=== PATIENT | male | born 1965 | race Native Hawaiian/Other Pacific Islander ===

== ENCOUNTER → 2016-12-15 | Outpatient (CLI) | payer OTHER ==
--- NOTE | 2016-12-15 15:18 | XR ---
EXAMINATION TYPE: XR sacroiliac joint comp BILAT DATE OF EXAM: 12/15/2016 3:15 PM COMPARISON: NONE HISTORY: Low back pain TECHNIQUE: 2 views sacroiliac joints FINDINGS: No acute fractures are evident. Sacroiliac joints are patent. IMPRESSION: 1. Normal sacroiliac joints
--- NOTE | 2016-12-15 15:19 | XR ---
EXAMINATION TYPE: XR lumbar spine with bend/flex DATE OF EXAM: 12/15/2016 3:14 PM COMPARISON: NONE HISTORY: Low back pain TECHNIQUE: 5 view lumbar spine FINDINGS: T12 ribs are rudimentary. Disc heights are preserved. Vertebral body heights are preserved. Flexion and extension views maintained alignment of the lumbar spine. IMPRESSION: 1. Normal lumbar spine with lateral flexion and extension views
== END ==
LOC: RADXRMAIN 14:44
PROVIDERS: ATTEND Psychiatry & Neurology Pain Medicine
DX: M54.5 Low back pain (principal)
CPT/HCPCS: 72114; 72202

== ENCOUNTER → 2016-12-30 | Outpatient (CLI) | payer OTHER | LOC: RADMRIMAIN 07:07 | PROVIDERS: ATTEND Psychiatry & Neurology Pain Medicine | DX: Z53.9 Procedure and treatment not carried out, unspecified reason (principal) ==

== ENCOUNTER 2017-09-08 21:33 | Emergency (ER) | payer OTHER ==
[2017-09-08] MEDS ORDERED: SODIUM CHLORIDE 0.9% 1,000 ML IV STA (22:16)
[2017-09-08] MEDS ORDERED: HYDROcodone/APAP 5-325MG 1 EACH TAB PO STA (22:17)
[2017-09-08] MEDS ORDERED: ACETAMINOPHEN TAB 500 MG TAB PO STA (22:17)
[2017-09-08] MEDS ORDERED: IBUPROFEN 600 MG TAB PO STA (22:17)
[2017-09-08 22:37] VITALS: RESP 18
[2017-09-08 22:47] LABS: Appearance,Urine Clear (Clear); Bilirubin,Urine Negative (Negative); Blood,Urine Negative (Negative); Color,Urine Yellow; Glucose,Urine (UA) Negative (Negative); Ketones,Urine Negative (Negative); Leukocyte Esterase,Urine Negative (Negative); Nitrite,Urine Negative (Negative); PH, Urine 7.5 (5.0-8.0); Protein,Urine Trace (Negative); Specific Gravity,Urine 1.019 (1.001-1.035); Urobilinogen,Urine <2.0 mg/dL (<2.0)
[2017-09-08 22:49] LABS: Basophils % (A) 0 %; Eosinophils # (A) 0.1 k/uL (0-0.7); Eosinophils % (A) 1 %; HCT 45.3 % (39.0-53.0); HGB 14.2 gm/dL (13.0-17.5); Lymphocytes # (A) 1.4 k/uL (1.0-4.8); Lymphocytes % (A) 27 %; MCH 25.7 pg (25.0-35.0); MCHC 31.3 g/dL (31.0-37.0); MCV 81.9 fL (80.0-100.0); Mean Platelet Volume 7.6; Monocytes # (A) 0.5 k/uL (0-1.0); Monocytes % (A) 9 %; Neutrophils # (A) 3.3 k/uL (1.3-7.7); Neutrophils % (A) 61 %; Platelet Count 209 k/uL (150-450); RBC 5.53 m/uL (4.30-5.90); RDW 14.4 % (11.5-15.5); WBC 5.4 k/uL (3.8-10.6)
[2017-09-08 22:50] LABS: ALT 36 U/L (21-72); AST 30 U/L (17-59); Alkaline Phosphatase 99 U/L (38-126); Amylase 77 U/L (30-110); Anion Gap 11 mmol/L; Blood Urea Nitrogen 11 mg/dL (9-20); Calcium 9.2 mg/dL (8.4-10.2); Carbon Dioxide 23 mmol/L (22-30); Chloride 105 mmol/L (98-107); Glucose 136 mg/dL (74-99); Lipase 94 U/L (23-300); Potassium 4.3 mmol/L (3.5-5.1); Sodium 139 mmol/L (137-145); Total Bilirubin 0.2 mg/dL (0.2-1.3); Total Protein 7.4 g/dL (6.3-8.2)
--- NOTE | 2017-09-08 22:55 | ED ---
Abdominal Pain HPI - General Chief Complaint: Abdominal Pain Stated Complaint: Leg pain Time Seen by Provider: 09/08/17 22:01 Source: patient, RN notes reviewed, old records reviewed Mode of arrival: wheelchair Limitations: no limitations - History of Present Illness Initial Comments: this patient is a 52-year-old male presents emergency room multiple complaints. Patient has body aches, fever, chills for the past 3 days. He reports that he has some upper abdominal pain, feels a burning sensation also complains of bilateral knee pain. Patient states that his joints ache. He states that he has had Motrin sure ago. He also reports she's had a somewhat of a cough. Denies any specific chest pain at this time.patient also reports that he isn't having diarrhea.Patient denies any recent chest pain, back pain, abdominal pain , numbness or tingling, dysuria or hematuria, constipation or, headaches or visual changes, or any other current symptoms - Related Data Previous Rx's Medication Instructions Recorded Ibuprofen [Motrin] 800 mg PO Q8HR PRN #20 tab 09/13/15 HYDROcodone/APAP 5-325MG [[place] 1 tab PO Q6HR PRN #15 tab 09/09/17 5-325] Ibuprofen [Motrin] 600 mg PO Q8HR PRN #20 tab 09/09/17 valACYclovir HCL [Valacyclovir] 1,000 mg PO Q12HR #14 tab 09/09/17 Allergies Allergy/AdvReac Type Severity Reaction Status Date / Time No Known Allergies Allergy Verified 09/08/17 21:55 Review of Systems ROS Statement: Those systems with pertinent positive or pertinent negative responses have been documented in the HPI. ROS Other: All systems not noted in ROS Statement are negative. Past Medical History Past Medical History: Asthma, Diabetes Mellitus, Hypertension History of Any Multi-Drug Resistant Organisms: None Reported Past Surgical History: Orthopedic Surgery Additional Past Surgical History / Comment(s): nimco knee Past Psychological History: No Psychological Hx Reported Smoking Status: Never smoker Past Alcohol Use History: Occasional Past Drug Use History: None Reported General Exam - General Exam Comments Initial Comments: this is a 52-year-old male. No acute distress. Limitations: no limitations General appearance: alert, in no apparent distress Head exam: Present: atraumatic Eye exam: Present: normal appearance, PERRL, EOMI. Absent: scleral icterus, conjunctival injection, periorbital swelling ENT exam: Present: normal exam, mucous membranes moist Neck exam: Present: normal inspection. Absent: tenderness, meningismus, lymphadenopathy Respiratory exam: Present: normal lung sounds bilaterally. Absent: respiratory distress, wheezes, rales, rhonchi, stridor Cardiovascular Exam: Present: regular rate, normal rhythm, normal heart sounds. Absent: systolic murmur, diastolic murmur, rubs, gallop, clicks GI/Abdominal exam: Present: soft, normal bowel sounds, other (protuberant abdomen.). Absent: distended, tenderness, guarding, rebound, rigid Extremities exam: Present: normal inspection, full ROM, normal capillary refill , other (right knee. He does have a rash appears to be in the dermatome region. Questionable shingles.). Absent: tenderness, pedal edema, joint swelling, calf tenderness Back exam: Present: normal inspection Neurological exam: Present: alert, oriented X3, CN II-XII intact Course Vital Signs 09/08/17 09/08/17 09/08/17 21:52 22:36 23:10 Temperature 103.0 F H 99.1 F Pulse Rate 102 H 102 H 93 Respiratory 22 18 18 Rate Blood Pressure 125/73 121/76 130/77 O2 Sat by Pulse 96 96 95 Oximetry 09/09/17 09/09/17 00:17 01:37 Temperature 98.4 F 98.1 F Pulse Rate 79 78 Respiratory 18 18 Rate Blood Pressure 115/67 101/66 O2 Sat by Pulse 95 96 Oximetry Medical Decision Making - Medical Decision Making 52-year-old male multiple complaints presents today with fever 103. Motor time he fluids labwork obtained. Patient's lab work was all reviewed to be normal. Chest x-ray shows normal values EKG was normal, KUB is normal. He complains of diarrhea, intermittent coughing. His flu test was negative. Discussed patient likely has a viral syndrome. Also complains of severe pain to palpation over his skin on his right hip pain down his right leg. He also had Dr. Forrest examined the patient, we do believe there is possibility of early shingles at this time. We'll start the patient on antiviral medicine and pain medicine. Discussed that he needs follow-up with primary care provider. Take Motrin tunnel for fever and pain. Discussed most likely a viral syndrome is causing all these multiple 2 to symptoms including joint pains, diarrhea, cough and fever. Patient reports he does feel better. He'll be discharged at this time with close follow-up. All questions were answered and return parameters were discussed. - Lab Data Result diagrams: 09/08/17 22:25 09/08/17 22:25 Lab Results 09/08/17 09/08/17 09/08/17 Range/Units 22:25 22:25 22:25 WBC 5.4 (3.8-10.6) k/uL RBC 5.53 (4.30-5.90) m/uL Hgb 14.2 (13.0-17.5) gm/dL Hct 45.3 (39.0-53.0) % MCV 81.9 (80.0-100.0) fL MCH 25.7 (25.0-35.0) pg MCHC 31.3 (31.0-37.0) g/dL RDW 14.4 (11.5-15.5) % Plt Count 209 (150-450) k/uL Neutrophils % 61 % Lymphocytes % 27 % Monocytes % 9 % Eosinophils % 1 % Basophils % 0 % Neutrophils # 3.3 (1.3-7.7) k/uL Lymphocytes # 1.4 (1.0-4.8) k/uL Monocytes # 0.5 (0-1.0) k/uL Eosinophils # 0.1 (0-0.7) k/uL Basophils # 0.0 (0-0.2) k/uL Sodium 139 (137-145) mmol/L Potassium 4.3 (3.5-5.1) mmol/L Chloride 105 (98-107) mmol/L Carbon Dioxide 23 (22-30) mmol/L Anion Gap 11 mmol/L BUN 11 (9-20) mg/dL Creatinine 1.00 (0.66-1.25) mg/dL Est GFR (MDRD) Af Amer >60 (>60 ml/min/1.73 sqM) Est GFR (MDRD) Non-Af >60 (>60 ml/min/1.73 sqM) Glucose 136 H (74-99) mg/dL Plasma Lactic Acid Mamadou (0.7-2.0) mmol/L Calcium 9.2 (8.4-10.2) mg/dL Total Bilirubin 0.2 (0.2-1.3) mg/dL AST 30 (17-59) U/L ALT 36 (21-72) U/L Alkaline Phosphatase 99 (38-126) U/L Troponin I (0.000-0.034) ng/mL Total Protein 7.4 (6.3-8.2) g/dL Albumin 4.0 (3.5-5.0) g/dL Amylase 77 (30-110) U/L Lipase 94 (23-300) U/L Urine Color Urine Appearance (Clear) Urine pH (5.0-8.0) Ur Specific [place] (1.001-1.035) Urine Protein (Negative) Urine Glucose (UA) (Negative) Urine Ketones (Negative) Urine Blood (Negative) Urine Nitrite (Negative) Urine Bilirubin (Negative) Urine Urobilinogen (<2.0) mg/dL Ur Leukocyte Esterase (Negative) Influenza Type A RNA Not Detected (Not Detectd) Influenza Type B (PCR) Not Detected (Not Detectd) 09/08/17 09/08/17 09/08/17 Range/Units 22:25 22:25 22:25 WBC (3.8-10.6) k/uL RBC (4.30-5.90) m/uL Hgb (13.0-17.5) gm/dL Hct (39.0-53.0) % MCV (80.0-100.0) fL MCH (25.0-35.0) pg MCHC (31.0-37.0) g/dL RDW (11.5-15.5) % Plt Count (150-450) k/uL Neutrophils % % Lymphocytes % % Monocytes % % Eosinophils % % Basophils % % Neutrophils # (1.3-7.7) k/uL Lymphocytes # (1.0-4.8) k/uL Monocytes # (0-1.0) k/uL Eosinophils # (0-0.7) k/uL Basophils # (0-0.2) k/uL Sodium (137-145) mmol/L Potassium (3.5-5.1) mmol/L Chloride (98-107) mmol/L Carbon Dioxide (22-30) mmol/L Anion Gap mmol/L BUN (9-20) mg/dL Creatinine (0.66-1.25) mg/dL Est GFR (MDRD) Af Amer (>60 ml/min/1.73 sqM) Est GFR (MDRD) Non-Af (>60 ml/min/1.73 sqM) Glucose (74-99) mg/dL Plasma Lactic Acid Mamadou 2.0 (0.7-2.0) mmol/L Calcium (8.4-10.2) mg/dL Total Bilirubin (0.2-1.3) mg/dL AST (17-59) U/L ALT (21-72) U/L Alkaline Phosphatase (38-126) U/L Troponin I <0.012 (0.000-0.034) ng/mL Total Protein (6.3-8.2) g/dL Albumin (3.5-5.0) g/dL Amylase (30-110) U/L Lipase (23-300) U/L Urine Color Yellow Urine Appearance Clear (Clear) Urine pH 7.5 (5.0-8.0) Ur Specific [place] 1.019 (1.001-1.035) Urine Protein Trace H (Negative) Urine Glucose (UA) Negative (Negative) Urine Ketones Negative (Negative) Urine Blood Negative (Negative) Urine Nitrite Negative (Negative) Urine Bilirubin Negative (Negative) Urine Urobilinogen <2.0 (<2.0) mg/dL Ur Leukocyte Esterase Negative (Negative) Influenza Type A RNA (Not Detectd) Influenza Type B (PCR) (Not Detectd) - EKG Data EKG Comments: EKG shows sinus tachycardia, ventricular rate of 10 1 bpm. WI interval 126 most seconds. QRS duration 84 ms. QT QTc is 334/433 ms. No evidence of ST elevation or T-wave inversions. No discrete or ventricular arrhythmias. - Radiology Data Radiology results: report reviewed chest x-ray was reviewed and negative for any acute process. KUB shows nonacute bowel gas pattern. Disposition Clinical Impression: Viral syndrome, Shingles Disposition: HOME SELF-CARE Condition: Good Instructions: Shingles (ED), Viral Syndrome (ED) Additional Instructions: patient is to take Motrin Tylenol for pain. Patient should take the antiviral medicine for [place] likely early shingles. Patient should follow-up with primary care provider. Return to emergency department if any alarming signs or symptoms occur. Prescriptions: HYDROcodone/APAP 5-325MG [[place] 5-325] 1 tab PO Q6HR PRN #15 tab PRN Reason: Pain Ibuprofen [Motrin] 600 mg PO Q8HR PRN #20 tab PRN Reason: Fever valACYclovir HCL [Valacyclovir] 1,000 mg PO Q12HR #14 tab Referrals: Alexis Larson MD [Primary Care Provider] - 1-2 days Time of Disposition: 01:14
--- NOTE | 2017-09-08 22:58 | XR ---
EXAMINATION TYPE: XR chest 2V DATE OF EXAM: 09/08/2017 COMPARISON: NONE HISTORY: Right flank pain TECHNIQUE: Frontal and lateral views of the chest are obtained. FINDINGS: Heart and mediastinum are normal. Lungs are clear. Diaphragm is normal. Bony thorax appear s normal. There are chest leads. IMPRESSION: Normal chest
--- NOTE | 2017-09-08 22:59 | XR ---
EXAMINATION TYPE: XR KUB DATE OF EXAM: 09/08/2017 COMPARISON: None HISTORY: Right flank pain TECHNIQUE: 2 views FINDINGS: There is no sign of intestinal obstruction or pneumoperitoneum. Fecal pattern is normal. Th ere are no pathologic ossifications over the kidneys. Lung bases are clear. Bony structures appear in tact. IMPRESSION: Nonacute abdomen.
[2017-09-09] MEDS ORDERED: ACYCLOVIR 800 MG TAB PO STA (01:07)
[2017-09-09 01:38] VITALS: BP 101/66; PULSE 78; TEMP 98.1
== END 2017-09-09 01:45 | disposition home or self-care (01) ==
LOC: EC 21:33
DX: B02.9 Zoster without complications (principal); B34.9 Viral infection, unspecified
CPT/HCPCS: 36415; 71046; 74018; 80053; 81003; 82150; 83605; 83690; 84484; 85025; 87040; 87502; 93005; 96360; 99284

== ENCOUNTER 2018-05-30 06:55 | Day surgery (SDC) | payer OTHER ==
[2018-05-28 11:05] VITALS: BMI 39.1
[~2018-05-30 06:55] MED LIST: LACTATED RINGERS 1,000 ML IV SCH
[2018-05-30 07:10] VITALS: RESP 18; TEMP 98.1
[2018-05-30 07:19] LABS: Glucose,Whole Blood 125 mg/dL (75-99)
--- NOTE | 2018-05-30 07:40 | P.GSHP ---
History of Present Illness H&P Date: 05/30/18 Chief Complaint: Screening colonoscopy A 73-year-old male referred from Dr. Alexis Otoole. Patient is today for screening colonoscopy. He denies any significant GI complaints. Past Medical History Past Medical History: Asthma, Diabetes Mellitus, Hypertension Additional Past Medical History / Comment(s): RECENT SINUS INFECTION-ON ANTIBIOTICS History of Any Multi-Drug Resistant Organisms: None Reported Past Surgical History: Orthopedic Surgery Additional Past Surgical History / Comment(s): nimco knee Past Anesthesia/Blood Transfusion Reactions: No Reported Reaction Smoking Status: Never smoker - Past Family History Mother Family Medical History: Cancer Medications and Allergies Home Medications Medication Instructions Recorded Confirmed Type Cholecalciferol (Vitamin D3) 2,000 unit PO DAILY 05/28/18 05/30/18 History [Vitamin D3] Clindamycin HCl 300 mg PO Q12HR 05/28/18 05/30/18 History Lisinopril [Zestril] 10 mg PO DAILY 05/28/18 05/30/18 History glipiZIDE [Glucotrol] 2.5 mg PO DAILY 05/28/18 05/30/18 History metFORMIN HCL [Glucophage] 500 mg PO DAILY 05/28/18 05/30/18 History rOPINIRole HCL [Requip] 2 mg PO DAILY 05/28/18 05/30/18 History Allergies Allergy/AdvReac Type Severity Reaction Status Date / Time No Known Allergies Allergy Verified 05/28/18 11:00 Surgical - Exam Vital Signs Temp Pulse Resp BP Pulse Ox 98.1 F 80 18 108/62 96 05/30/18 07:08 05/30/18 07:08 05/30/18 07:08 05/30/18 07:08 05/30/18 07:08 - General well developed, no distress - Eyes PERRL - ENT normal pinna - Neck no masses - Respiratory normal expansion - Cardiovascular Rhythm: regular - Abdomen Abdomen: soft, non tender Results - Labs Abnormal Lab Results - Last 24 Hours (Table) 05/30/18 Range/Units 07:14 POC Glucose (mg/dL) 125 H (75-99) mg/dL Assessment and Plan Assessment: We will perform screening colonoscopy.
[2018-05-30] MEDS ORDERED: PROPOFOL 10 MG/ML 20 ML VIAL IV ONE (07:44)
--- NOTE | 2018-05-30 08:00 | P.OP ---
Date of Procedure: 05/30/18 Preoperative Diagnosis: Screening colonoscopy Postoperative Diagnosis: Normal colon Procedure(s) Performed: Colonoscopy Anesthesia: MAC Surgeon: Israel Callejas Pathology: none sent Condition: stable Disposition: PACU Description of Procedure: PROCEDURE: The patient was placed on the endoscopy table in the lateral position. Digital rectal examination was performed which revealed no abnormalities. The prostate was symmetrical without nodules. Flexible colonoscope was then placed in the patient's anus and passed throughout the entire colon. The ileocecal valve was visualized. The cecum, ascending, transverse, descending and sigmoid colon were normal. The rectum was normal as well. There were no masses, polyps or diverticula noted in the entire colon. SUMMARY OF FINDINGS: Normal colonoscopy.
[2018-05-30 08:16] VITALS: BP 123/83; PULSE 80
== END 2018-05-30 08:47 | disposition home or self-care (01) ==
LOC: ORWHC2ENDO 06:55
PROVIDERS: ATTEND Surgery
DX: Z12.11 Encounter for screening for malignant neoplasm of colon (principal); J45.909 Unspecified asthma, uncomplicated; E11.9 Type 2 diabetes mellitus without complications; I10 Essential (primary) hypertension; E78.5 Hyperlipidemia, unspecified; Z79.84 Long term (current) use of oral hypoglycemic drugs; Z79.899 Other long term (current) drug therapy
CPT/HCPCS: J2704; G0121

== ENCOUNTER 2018-06-16 20:54 | Observation (INO) | payer OTHER ==
[2018-06-16] MEDS ORDERED: ASPIRIN 81 MG PO STA (21:19)
[2018-06-16] MEDS ORDERED: SODIUM CHLORIDE 0.9% 1,000 ML IV STA (21:19)
[2018-06-16 21:26] VITALS: RESP 18
[2018-06-16 21:39] LABS: Basophils % (A) 0 %; Eosinophils # (A) 0.2 k/uL (0-0.7); Eosinophils % (A) 2 %; HCT 40.1 % (39.0-53.0); HGB 12.5 gm/dL (13.0-17.5); Hypochromasia Slight; Lymphocytes # (A) 3.6 k/uL (1.0-4.8); Lymphocytes % (A) 41 %; MCH 24.7 pg (25.0-35.0); MCHC 31.1 g/dL (31.0-37.0); MCV 79.3 fL (80.0-100.0); Mean Platelet Volume 7.6; Monocytes # (A) 0.5 k/uL (0-1.0); Monocytes % (A) 5 %; Neutrophils # (A) 4.3 k/uL (1.3-7.7); Neutrophils % (A) 49 %; Platelet Count 272 k/uL (150-450); RBC 5.05 m/uL (4.30-5.90); RDW 15.5 % (11.5-15.5); WBC 8.7 k/uL (3.8-10.6)
[2018-06-16 21:46] LABS: D-Dimer 0.25 mg/L FEU (<0.60); Partial Thromboplastin Time 23.4 sec (22.0-30.0); Prothrombin Time 9.7 sec (9.0-12.0)
[2018-06-16 21:47] LABS: ALT 30 U/L (21-72); AST 27 U/L (17-59); Albumin 3.7 g/dL (3.5-5.0); Alkaline Phosphatase 92 U/L (38-126); Anion Gap 9 mmol/L; Blood Urea Nitrogen 15 mg/dL (9-20); Calcium 9.1 mg/dL (8.4-10.2); Carbon Dioxide 22 mmol/L (22-30); Chloride 107 mmol/L (98-107); Glucose 242 mg/dL (74-99); Lipase 124 U/L (23-300); Magnesium 1.9 mg/dL (1.6-2.3); Potassium 4.3 mmol/L (3.5-5.1); Sodium 138 mmol/L (137-145); Total Bilirubin 0.2 mg/dL (0.2-1.3); Total Protein 7.1 g/dL (6.3-8.2)
[2018-06-16 22:00] LABS: Creatine Kinase 129 U/L (55-170)
[2018-06-16] MEDS ORDERED: IPRATROPIUM-ALBUTEROL 3 ML NEB INHALATION STA (22:00)
--- NOTE | 2018-06-16 22:01 | ED ---
Chest Pain HPI - General Chief Complaint: Chest Pain Stated Complaint: Chest pain Time Seen by Provider: 06/16/18 21:13 Source: patient Mode of arrival: wheelchair Limitations: no limitations - History of Present Illness Initial Comments: Patient is an obese 53-year-old male who presents to the emergency department today for evaluation of chest pain. Patient reports he has had mild nonproductive cough and has occasional sharp stabbing pains when coughing. However this evening he developed a sharp pain that radiates across his chest from the left chest into the right chest. Patient describes the pain as being similar in character to previous episode of a spontaneous pneumothorax which happened a few years ago. Pain is associated with difficulty breathing and pressure in the chest that is had no diaphoresis or lightheadedness. Patient does have a history of hypertension believes he has hyperlipidemia but is not on medications, poorly controlled diabetes and obesity. He is uncertain of his family history. He has no known personal cardiac disease. Does not follow with cardiology. He is a nonsmoker. - Related Data Home Medications Medication Instructions Recorded Confirmed Cholecalciferol (Vitamin D3) 2,000 unit PO DAILY 05/28/18 06/16/18 [Vitamin D3] Lisinopril [Zestril] 10 mg PO DAILY 05/28/18 06/16/18 glipiZIDE [Glucotrol] 2.5 mg PO BID 05/28/18 06/16/18 metFORMIN HCL [Glucophage] 500 mg PO DAILY 05/28/18 06/16/18 Allergies Allergy/AdvReac Type Severity Reaction Status Date / Time No Known Allergies Allergy Verified 06/16/18 21:30 Review of Systems ROS Statement: Those systems with pertinent positive or pertinent negative responses have been documented in the HPI. ROS Other: All systems not noted in ROS Statement are negative. EKG Findings - EKG Comments: EKG Findings:: EKG obtained at 9:12 PM, rate is 78, rhythm is sinus, there is a normal axis, there are normal intervals, AR 144, QRS 84, QTC 442. There are no acute ST elevations or depressions no evidence of acute ischemia or infarction. Past Medical History Past Medical History: Asthma, Diabetes Mellitus, Hypertension History of Any Multi-Drug Resistant Organisms: None Reported Past Surgical History: Orthopedic Surgery Additional Past Surgical History / Comment(s): nimco knee Past Anesthesia/Blood Transfusion Reactions: No Reported Reaction Past Psychological History: No Psychological Hx Reported Smoking Status: Never smoker Past Alcohol Use History: Rare - Past Family History Mother Family Medical History: Cancer General Exam - General Exam Comments Initial Comments: Physical Exam GENERAL: Patient is well-developed and well-nourished. Patient is nontoxic and well-hydrated appears uncomfortable HENT: Normocephalic, Atraumatic. EYES: PERRL, EOMI PULMONARY: Unlabored respirations. No audible rales rhonchi or wheezing was noted. CARDIOVASCULAR: There is a regular rate and rhythm without any murmurs gallops or rubs. Warm and well-perfused extremities ABDOMEN: Soft and nontender with normal bowel sounds. SKIN: Skin is clear with no lesions or rashes and otherwise unremarkable. : Deferred NEUROLOGIC: Patient is alert and oriented x3. Moving all extremities spontaneously MUSCULOSKELETAL: Normal extremities with adequate strength and full range of motion. No lower extremity swelling or edema. No calf tenderness. PSYCHIATRIC: Normal psychiatric evaluation. Limitations: no limitations Limitations: no limitations Course Vital Signs 06/16/18 06/16/18 06/16/18 20:58 21:25 22:16 Temperature 98.3 F Pulse Rate 84 72 71 Pulse Rate [ Pulse Oximetery ] Respiratory 20 18 18 Rate Blood Pressure 118/73 145/93 Blood Pressure [Left Arm] O2 Sat by Pulse 97 98 Oximetry 06/16/18 06/16/18 06/16/18 22:26 22:49 23:12 Temperature 97.3 F L Pulse Rate 73 84 Pulse Rate [ 76 Pulse Oximetery ] Respiratory 18 18 18 Rate Blood Pressure 135/98 Blood Pressure 125/81 [Left Arm] O2 Sat by Pulse 95 94 L Oximetry 06/16/18 23:31 Temperature Pulse Rate 76 Pulse Rate [ Pulse Oximetery ] Respiratory 18 Rate Blood Pressure 131/80 Blood Pressure [Left Arm] O2 Sat by Pulse 96 Oximetry Chest Pain MDM - MDM The patient was seen and evaluated immediately upon arrival to the emergency room CXR was ordered CXR with no obvious pneumothorax Cardiac workup ordered EKG non-ischemic Labs with no significant abnormalities Patient with persistent chest pain after ASA and breathing treatment Patient care discussed with patient's PCP Dr. Richey who accepts the admission for ACS evaluation, requests consult to cardiology Disposition Clinical Impression: Chest pain Disposition: ADMITTED IP TO THIS HOSP
--- NOTE | 2018-06-16 22:08 | XR ---
EXAMINATION TYPE: XR chest 1V portable DATE OF EXAM: 06/16/2018 COMPARISON: 09/08/2017 HISTORY: Chest pain TECHNIQUE: Single frontal view of the chest is obtained. FINDINGS: Heart and mediastinum are normal. Lungs are clear. Diaphragm is normal. There are chest le ads. Bony thorax appears normal. There is no heart failure. IMPRESSION: Normal chest. No change.
[2018-06-16 22:11] LABS: Creatine Kinase MB 0.9 ng/mL (0.0-2.4); Troponin I <0.012 ng/mL (0.000-0.034)
[2018-06-16] MEDS ORDERED: NITROGLYCERIN SL TABS 0.4 MG TAB SUBLINGUAL PRN (22:47)
[2018-06-16 23:18] LABS: Appearance,Urine Clear (Clear); Bilirubin,Urine Negative (Negative); Blood,Urine Negative (Negative); Color,Urine Light Yellow; Glucose,Urine (UA) 4+ (Negative); Ketones,Urine Negative (Negative); Leukocyte Esterase,Urine Negative (Negative); Nitrite,Urine Negative (Negative); PH, Urine 6.5 (5.0-8.0); Protein,Urine Negative (Negative); Specific Gravity,Urine 1.017 (1.001-1.035); Urobilinogen,Urine <2.0 mg/dL (<2.0)
[2018-06-17 00:02] VITALS: BMI 38.9
[2018-06-17 04:25] LABS: Cholesterol 157 mg/dL (<200); HDL Cholesterol 22 mg/dL (40-60); LDL Cholesterol,Calculated 110 mg/dL (0-99); Triglycerides 126 mg/dL (<150)
[2018-06-17 04:33] LABS: Creatine Kinase 111 U/L (55-170)
[2018-06-17 04:46] LABS: Creatine Kinase MB 0.8 ng/mL (0.0-2.4); Troponin I <0.012 ng/mL (0.000-0.034)
[2018-06-17 06:26] LABS: Glucose,Whole Blood 109 mg/dL (75-99)
[2018-06-17] MEDS: INSULIN ASPART 100 UNIT/ML 1 ML 10 ML VIAL SQ SCH ×4 (06:29→20:34)
[2018-06-17] MEDS ORDERED: RX INFO: IV CONTRAST WAS GIVEN 1 EACH MISC MISCELLANE PRN (07:20)
[2018-06-17] MEDS ORDERED: ASPIRIN 325 MG TAB PO SCH (09:00)
[2018-06-17] MEDS: LISINOPRIL 10 MG TAB PO SCH (09:05)
--- NOTE | 2018-06-17 09:49 | P.CRDCN ---
History of Present Illness Consult date: 06/17/18 Requesting physician: Alexis Larson Consult reason: chest pain Chief complaint: Chest pain History of present illness: This is a 53-year-old gentleman with history of hypertension, diabetes , prior history of smoking, asthma, COPD, presents to the hospital with symptoms of left-sided chest tightness and associated shortness of breath. According to the patient he has been getting these symptoms off and on with or without activity. He also states that he's been getting a discomfort in his right upper quadrant around to his back area comes and goes. He has been intermittently experiencing fevers at home, denies any productive sputum of yellow or green in color, he does state he coughed up some sputum this morning that was blood-tinged. Patient also has a family history of premature coronary artery disease. Blood pressure on arrival 118/70 with a heart rate in the 80s, afebrile, 97% on room air. Blood pressure this morning 128/68, heart rate in the 70s, temperature 97.3, 95% on room air. White blood cell count 8.7, hemoglobin 12.5, platelet count 272. D-dimer 0.2, sodium 138, potassium 4.3, BUN 15, creatinine 0.9. Troponins have been negative 2. Cholesterol 157, LDL 110, HDL 22, triglycerides 126. EKG shows normal sinus rhythm with no acute changes. Chest x-ray normal. At the time of my examination, patient is complaining of mild chest tightness which she is rating at about a 2 on the pain scale. He still does feel short of breath as well. The patient's home medications include Glucophage, Glucotrol, Zestril 10 mg daily and vitamin D, he is not currently on a statin. We will obtain a third troponin, obtain echocardiogram with Doppler study, and initiate the patient on a statin. Past Medical History Past Medical History: Asthma, Diabetes Mellitus, Hypertension Additional Past Medical History / Comment(s): RECENT SINUS INFECTION-ON ANTIBIOTICS History of Any Multi-Drug Resistant Organisms: None Reported Past Surgical History: Orthopedic Surgery Additional Past Surgical History / Comment(s): nimco knee Past Anesthesia/Blood Transfusion Reactions: No Reported Reaction Past Psychological History: No Psychological Hx Reported Smoking Status: Never smoker Past Alcohol Use History: Rare - Past Family History Mother Family Medical History: Cancer Medications and Allergies Home Medications Medication Instructions Recorded Confirmed Type Cholecalciferol (Vitamin D3) 2,000 unit PO DAILY 05/28/18 06/16/18 History [Vitamin D3] Lisinopril [Zestril] 10 mg PO DAILY 05/28/18 06/16/18 History glipiZIDE [Glucotrol] 2.5 mg PO BID 05/28/18 06/16/18 History metFORMIN HCL [Glucophage] 500 mg PO DAILY 05/28/18 06/16/18 History Allergies Allergy/AdvReac Type Severity Reaction Status Date / Time No Known Allergies Allergy Verified 06/16/18 21:30 Physical Exam Vitals: Vital Signs Temp Pulse Pulse Resp BP BP Pulse Ox 06/17/18 09:06 97.3 F L 70 18 129/69 95 06/17/18 06:50 18 99 06/17/18 03:01 98 F 69 18 137/72 96 06/17/18 00:00 97.5 F L 80 18 125/79 95 06/16/18 23:31 76 18 131/80 96 06/16/18 23:12 97.3 F L 76 18 125/81 94 L 06/16/18 22:49 84 18 135/98 95 06/16/18 22:26 73 18 06/16/18 22:16 71 18 06/16/18 21:25 72 18 145/93 98 06/16/18 20:58 98.3 F 84 20 118/73 97 Intake and Output 06/16/18 06/17/18 06/17/18 22:59 06:59 14:59 Intake Total 0 Balance 0 Intake: Oral 0 Other: Voiding Method Toilet # Voids 2 Weight 113.398 kg 112.9 kg PHYSICAL EXAMINATION: GENERAL: 53-year-old gentleman in no acute distress at the time of my examination HEENT: Head is atraumatic, normocephalic. Pupils equal, round. Sclera anicteric. Conjunctiva are clear. Mucous membranes of the mouth are moist. Neck is supple. There is no elevated jugular venous pressure. No carotid bruit is heard. HEART EXAMINATION: Heart S1, S2 normal. No murmur or gallop heard. CHEST EXAMINATION: Lungs reveal scattered wheezing throughout with decreased air exchange ABDOMEN: Soft, positive right upper quadrant tenderness on exam .. EXTREMITIES: 2+ peripheral pulses with no evidence of peripheral edema and no calf tenderness noted. NEUROLOGIC patient is awake, alert and oriented X3. . Results 06/16/18 21:10 06/16/18 21:10 Cardiac Enzymes 06/16/18 06/16/18 06/17/18 Range/Units 21:10 21:10 03:02 AST 27 (17-59) U/L CK-MB (CK-2) 0.9 0.8 (0.0-2.4) ng/mL Troponin I <0.012 <0.012 (0.000-0.034) ng/mL Coagulation 06/16/18 Range/Units 21:10 PT 9.7 (9.0-12.0) sec APTT 23.4 (22.0-30.0) sec Lipids 06/17/18 Range/Units 03:02 Triglycerides 126 (<150) mg/dL Cholesterol 157 (<200) mg/dL HDL Cholesterol 22 L (40-60) mg/dL CBC 06/16/18 Range/Units 21:10 WBC 8.7 (3.8-10.6) k/uL RBC 5.05 (4.30-5.90) m/uL Hgb 12.5 L (13.0-17.5) gm/dL Hct 40.1 (39.0-53.0) % Plt Count 272 (150-450) k/uL Comprehensive Metabolic Panel 06/16/18 Range/Units 21:10 Sodium 138 (137-145) mmol/L Potassium 4.3 (3.5-5.1) mmol/L Chloride 107 (98-107) mmol/L Carbon Dioxide 22 (22-30) mmol/L BUN 15 (9-20) mg/dL Creatinine 0.95 (0.66-1.25) mg/dL Glucose 242 H (74-99) mg/dL Calcium 9.1 (8.4-10.2) mg/dL AST 27 (17-59) U/L ALT 30 (21-72) U/L Alkaline Phosphatase 92 (38-126) U/L Total Protein 7.1 (6.3-8.2) g/dL Albumin 3.7 (3.5-5.0) g/dL Current Medications Generic Name Dose Route Start Last Admin Trade Name Freq PRN Reason Stop Dose Admin Aspirin 325 mg 06/17/18 09:00 06/17/18 09:05 Aspirin PO 325 mg DAILY JUANY Administration Insulin Aspart 0 unit 06/17/18 07:30 06/17/18 06:29 Novolog SQ Not Given ACHS [facility] Protocol Lisinopril 10 mg 06/17/18 09:00 06/17/18 09:05 Zestril PO 10 mg DAILY JUANY Administration Miscellaneous Information 1 each 06/17/18 07:20 Rx Info: Iv Contrast Was Given MISCELLANE 06/19/18 07:20 DAILY PRN Per Protocol Nitroglycerin 0.4 mg 06/16/18 23:01 Nitrostat SUBLINGUAL Q5M PRN Chest Pain Intake and Output 06/16/18 06/17/18 06/17/18 22:59 06:59 14:59 Intake Total 0 Balance 0 Intake: Oral 0 Other: Voiding Method Toilet # Voids 2 Weight 113.398 kg 112.9 kg 06/16/18 21:10 06/16/18 21:10 EKG Interpretations (text) EKG shows normal sinus rhythm with no acute changes. Assessment and Plan Plan: Assessment and plan #1 chest discomfort with some atypical features for acute coronary syndrome. Troponins negative 2. EKG shows normal sinus rhythm with no acute changes. #2 symptoms of shortness of breath, possible asthma exacerbation #3 hypertension #4 diabetes #5 right upper quadrant abdominal discomfort, rule out acute cholecystitis #6 prior history of smoking #7 asthma #8 family history of premature coronary artery disease Plan We will obtain an echocardiogram with Doppler study as well as third troponin. We will also start the patient on a statin. Patient underwent CT of the chest this morning, his d-dimer was negative. Patient has significant wheezing throughout, once his lung status improves we'll recommend possibly doing a stress test. We will also request an ultrasound of the gallbladder be performed. Further recommendations to follow. DNP note has been reviewed, I agree with a documented findings and plan of care. Patient was seen and examined.
[2018-06-17 09:55] LABS: Creatine Kinase 106 U/L (55-170)
[2018-06-17 10:06] LABS: Creatine Kinase MB 0.8 ng/mL (0.0-2.4); Troponin I <0.012 ng/mL (0.000-0.034)
[2018-06-17 11:20] LABS: Glucose,Whole Blood 114 mg/dL (75-99)
--- NOTE | 2018-06-17 12:06 | CT ---
EXAMINATION TYPE: CT chest w con DATE OF EXAM: 06/17/2018 COMPARISON: None HISTORY: Cough, sob and pain CT DLP: 540.1 mGycm Automated exposure control for dose reduction was used. CONTRAST: CT scan of the chest is performed with IV Contrast, patient injected with 100 mL of Isovue 300. FINDINGS: LUNGS: The lungs are grossly clear, there is no concerning parenchymal mass or nodule identified. T here is no pleural effusion or pneumothorax seen. The tracheobronchial tree is patent. MEDIASTINUM: There are no greater than 1 cm hilar or mediastinal lymph nodes. No pericardial effusi on is seen. Thoracic aorta is of normal caliber. The heart is not enlarged. UPPER ABDOMEN: No significant abnormality appreciated. OTHER: No additional significant abnormality is seen. IMPRESSION: 1. No significant abnormality seen to account for the patient's symptoms.
[2018-06-17 12:08] LABS: Hemoglobin A1C 7.6 % (4.0-6.0)
--- NOTE | 2018-06-17 12:30 | ECHOF ---
Referral Reason:chest pain MEASUREMENTS -------- HEIGHT: 170.2 cm WEIGHT: 112.5 kg BP: 137/72 IVSd: 1.0 cm (0.6 - 1.1) LVIDd: 3.8 cm (3.9 - 5.3) LVPWd: 1.4 cm (0.6 - 1.1) IVSs: 1.5 cm LVIDs: 2.1 cm LVPWs: 1.8 cm Ao Diam: 3.3 cm (2.0 - 3.7) AV Cusp: 2.0 cm (1.5 - 2.6) LA Diam: 3.0 cm (2.7 - 3.8) MV EXCURSION: 11.453 mm (> 18.000) MV EF SLOPE: 94 mm/s (70 - 150) EPSS: 0.6 cm MV E Braden: 0.82 m/s MV DecT: 153 ms MV A Braden: 0.70 m/s MV E/A Ratio: 1.18 RAP: 5.00 mmHg RVSP: 16.53 mmHg FINDINGS -------- Sinus rhythm. This was a technically difficult study with suboptimal views. The left ventricular size is normal. There is mild concentric left ventricular hypertrophy. Overa ll left ventricular systolic function is mildly impaired with, an EF between 45 - 50 %. The right ventricle is normal in size and function. The left atrium is normal in size. The right atrium is normal in size. Lumason used The aortic valve is trileaflet, and appears structurally normal. No aortic stenosis or regurgitation. There is trace mitral regurgitation. Trace tricuspid regurgitation present. The right ventricular systolic pressure, as measured by Dopp ler, is 16.53mmHg. Pulmonic valve appears structurally normal. The aortic root size is normal. The pericardium is normal. CONCLUSIONS -------- 1. Sinus rhythm. 2. This was a technically difficult study with suboptimal views. 3. The left ventricular size is normal. 4. There is mild concentric left ventricular hypertrophy. 5. Overall left ventricular systolic function is mildly impaired with, an EF between 45 - 50 %. 6. The right ventricle is normal in size and function. 7. The left atrium is normal in size. 8. The right atrium is normal in size. 9. Lumason used 10. The aortic valve is trileaflet, and appears structurally normal. No aortic stenosis or regurgitat ion. 11. There is trace mitral regurgitation. 12. Trace tricuspid regurgitation present. 13. The right ventricular systolic pressure, as measured by Doppler, is 16.53mmHg. 14. Pulmonic valve appears structurally normal. 15. The aortic root size is normal. 16. The pericardium is normal. CORE MACHINE OPERATOR: Kristel Palma RDCS
[2018-06-17] MEDS ORDERED: traMADol 50 MG TAB PO PRN (13:46)
[2018-06-17] MEDS ORDERED: KETOROLAC 30 MG/ML 1 ML VIAL IVP PRN (13:47)
[2018-06-17] MEDS: NITROGLYCERIN SL TABS 0.4 MG TAB SUBLINGUAL PRN ×2 (15:17→15:22)
[2018-06-17 16:13] LABS: Glucose,Whole Blood 151 mg/dL (75-99)
--- NOTE | 2018-06-17 16:17 | US ---
EXAMINATION TYPE: US gallbladder DATE OF EXAM: 06/17/2018 COMPARISON: NONE CLINICAL HISTORY: 53-year-old male with abdominal pain . RUQ pain, chest pain TECHNIQUE: Multiple sonographic images of the right upper quadrant are obtained. FINDINGS: EXAM MEASUREMENTS: Liver Length: 16.2 cm Gallbladder Wall: 0.2 cm CBD: 0.4 cm Right Kidney: 10.6 x 5.2 x 5.5 cm Quarry Worker notes: Technically difficult exam due to midline bowel gas. Pancreas: not visualized due to midline bowel gas Liver: Very echogenic and attenuating. This secondary limits assessment for focal lesions. Gallbladder: No stones seen. No abnormal distention. Evidence for sonographic Lucero's sign: Yes CBD: wnl Right Kidney: No hydronephrosis. IMPRESSION: 1. Marked hepatic steatosis. Correlate with LFTs, lipid profile, and patient risk factors. This secon alok limits assessment for focal liver lesions. 2. Positive sonographic Lucero sign without ultrasound evidence for cholelithiasis or acute cholecyst itis. This may reflect referred pain. If further imaging evaluation of the gallbladder is desired, fo llow-up HIDA scan with ejection fraction.
[2018-06-17] MEDS: methylPREDNISolone SOD SUCCI 40 MG/ML 1 ML VIAL IV SCH ×2 (17:08→23:08)
[2018-06-17 20:20] LABS: Glucose,Whole Blood 254 mg/dL (75-99)
[2018-06-17] MEDS: HEPARIN SODIUM,PORCINE 5,000 UNIT/ML 1 ML VIAL SQ SCH (20:34)
[2018-06-17] MEDS: BUDESONIDE 0.5 MG/2 ML NEBU INHALATION SCH (20:52)
[2018-06-17] MEDS ORDERED: ATORVASTATIN 40 MG TAB PO SCH (21:00)
[2018-06-17] MEDS ORDERED: MONTELUKAST 10 MG TAB PO SCH (21:00)
--- NOTE | 2018-06-17 21:54 | CONS ---
ROBERTA Tovar is a 53-year-old male who presented to the ED at [facility] with left-sided chest pain. This has been associated with some cough with a very small amount of hemoptysis and wheezing. He previously had a spontaneous pneumothorax and thought this may have been similar to that. He was subsequently seen in the ED and admitted for further evaluation. He has also been complaining of right upper quadrant abdominal pain with some radiation of the pain to the back. PAST MEDICAL HISTORY: Positive for asthma diagnosed about 4-5 years ago, history of diabetes mellitus, hypertension, obesity, previous orthopedic surgery. SOCIAL HISTORY: The patient smoked in the remote past. 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 He does not use any illicit drugs. MEDICATIONS: Prior to admission were albuterol inhaler, metformin, glipizide, Zestril, vitamin D3. REVIEW OF SYSTEMS: Noncontributory other than for what is described in the present illness and past medical history. PHYSICAL EXAMINATION: Blood pressure is 100/67, respiratory rate of 18, pulse rate 86, temperature 97, O2 saturation on 2 L by nasal cannula is 98%. HEENT: Pupils are equal. There is redundant tissue in the posterior pharynx. Chest reveals decreased breath sounds with prolonged expiration. There is wheeze only on forced expiration. Cardiovascular system reveals an S1, S2. Abdomen is soft. There is some tenderness in the right upper quadrant. There is trace to 1+ pedal edema. LABORATORY DATA: White count is 8.7, hemoglobin of 12.5, MCV 79.3. Sodium 138, potassium 4.3, chloride 107, bicarb 22, BUN 15, creatinine of 0.95, glucose of 242, calcium 9.1, magnesium 1.9, LDL 110, HDL 22, lipase is 124. CT scan of the chest was done which showed no evidence of PE. Ultrasound of the gallbladder was done which showed evidence of ultrasonic positivity of Lucero sign. IMPRESSION: At this time: 1. Asthma with acute exacerbation. 2. Chest pain, cardiac versus noncardiac etiology. The chest pain can be explained by asthma with exacerbation. However, cardiology is following and we will defer to their expertise. 3. Right upper quadrant pain, possibly secondary to acute on chronic cholecystitis for which the patient may require further workup and possibly surgery. At this point in time from a pulmonary standpoint, would add heparin subcu to his regimen for DVT prophylaxis. Keep him on GI prophylaxis as well. Keep him on IV steroids. Add aerosolized steroids. Add montelukast to his regimen. Increase his activity level slowly. Depending on how he does, we should make further changes to his care. He was counseled regarding his condition and our approach and has a fair understanding of our recommendations. I would like to thank you for allowing us the privilege of participating in his care. LITO / JULIAN: [id number] /
--- NOTE | 2018-06-17 22:54 | HP ---
HISTORY AND PHYSICAL CHIEF COMPLAINT: This patient is a 53-year-old male with chest pain. This is a 53-year-old male with hypertension, diabetes, smoking, asthma, COPD, presents with left-sided chest tightness with shortness of breath on and off, with and without activity, tenderness to palpation of his chest. He also also been sick with cough, green-yellow phlegm, history of premature heart disease. Cardiology saw him. Troponins are negative. Cholesterol is good. EKG is sinus rhythm. PAST MEDICAL HISTORY: 1. Asthma. 2. Diabetes mellitus. 3. Hypertension. 4. Recent sinus infection, on antibiotics. 5. Orthopedic surgery. 6. Bilateral knee surgery. SOCIAL HISTORY: Never smoked. FAMILY HISTORY: Mother with cancer. HOME MEDICATIONS: 1. Vitamin D. 2. Zestril. 3. Glucotrol. 4. Glucophage. ALLERGIES: NEGATIVE. REVIEW OF SYSTEMS: Fourteen-point review of systems negative except for mentioned in HPI. PHYSICAL EXAMINATION: This is a 53-year-old male. CARDIOVASCULAR: S1, S2. LUNGS: Clear. GI: Soft. HEMATOLOGY: Negative Homans. PSYCH: Fair mood and affect. BMI is over 40. MUSCULOSKELETAL: Mild tenderness of the chest wall. All labs were reviewed. ASSESSMENT: 1. Atypical chest discomfort. Troponins are negative. 2. Asthma exacerbation. 3. Hypertension. 4. Diabetes mellitus. 5. Nicotine addiction. 6. Asthma. IV steroids have been ordered. Elevated D-dimer. CT scan of the chest was negative. Continue with IV antibiotics and steroids and possible stress test. Ultrasound of the gallbladder was negative. MMODL / IJN: [id number] /
[2018-06-18 05:36] LABS: Glucose,Whole Blood 195 mg/dL (75-99)
[2018-06-18] MEDS: methylPREDNISolone SOD SUCCI 40 MG/ML 1 ML VIAL IV SCH ×2 (06:14→12:40)
[2018-06-18] MEDS: INSULIN ASPART 100 UNIT/ML 1 ML 10 ML VIAL SQ SCH ×2 (06:15→12:40)
[2018-06-18] MEDS ORDERED: ASPIRIN 81 MG PO SCH (09:00)
[2018-06-18] MEDS ORDERED: ALBUTEROL NEBULIZED 2.5 MG/3 ML INHALATION PRN (09:33)
--- NOTE | 2018-06-18 09:34 | P.PN ---
Subjective Progress Note Date: 06/18/18 HPI: This is a 53-year-old male patient presented to the ED at [facility] with left-sided chest pain. This has been associated with some cough with a very small amount of hemoptysis and wheezing. He previously had a spontaneous pneumothorax and thought this may be similar to that. He was subsequently seen in the ED and admitted for further evaluation. He had also been complaining of some right upper quadrant abdominal pain and some radiating to the back. He does have a past medical history for asthma diagnosed about 4 or 5 years ago, history of diabetes mellitus, hypertension, obesity and previous orthopedic surgery. Socially the patient has smoked in the remote past. 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 He denies any illicit drug use. Interval history: 06/18/2018patient is being seen examined and evaluated today on rounds. He is resting up in bed on room air. States his breathing is improved today it is less tight. He denies any further chest pain at this point. States the breathing treatments and steroids haven't been helping him. He is afebrile denies any further complaints. Objective - Vital Signs Vital signs: Vital Signs Temp 98.3 F 06/18/18 08:00 Pulse 89 06/18/18 08:00 Resp 18 06/18/18 08:00 BP 129/82 06/18/18 08:00 Pulse Ox 95 06/18/18 08:00 Intake & Output 06/17/18 06/18/18 06/18/18 18:59 06:59 18:59 Intake Total 240 490 250 Balance 240 490 250 Weight 112.9 kg Intake: IV 10 10 Invasive Line 1 10 10 Oral 240 480 240 Other: Voiding Method Toilet # Voids 2 2 - Exam GENERAL EXAM: Alert, active, comfortable in no apparent distress. HEAD: Normocephalic. EYES: Normal reaction of pupils, equal size. NOSE: Clear with pink turbinates. THROAT: No erythema or exudates. NECK: No masses, no JVD. CHEST: No chest wall deformity. LUNGS: Equal air entry with no crackles, wheeze, rhonchi or dullness. Prolonged expiration CVS: S1 and S2 normal with no audible mumurs, regular rhythm. ABDOMEN: No hepatosplenomegaly, normal bowel sounds, no guarding or rigidity. EXTREMITIES: Trace edema noted, pedal pulses palpable. CENTRAL NERVOUS SYSTEM: No focal deficits, tone is normal in all 4 extremities. - Labs CBC & Chem 7: 06/16/18 21:10 06/16/18 21:10 Labs: Abnormal Lab Results - Last 24 Hours (Table) 06/17/18 06/17/18 06/17/18 Range/Units 03:02 11:17 16:12 POC Glucose (mg/dL) 114 H 151 H (75-99) mg/dL Hemoglobin A1c 7.6 H (4.0-6.0) % 06/17/18 06/18/18 Range/Units 20:18 05:34 POC Glucose (mg/dL) 254 H 195 H (75-99) mg/dL Hemoglobin A1c (4.0-6.0) % Assessment and Plan Assessment: Assessment Acute exacerbation of asthma, baseline severity of asthma unknown Chest pain cardiac versus noncardiac etiology Right upper quadrant pain secondary to acute on chronic cholecystitis Acute hypoxic respiratory failure requiring supplemental oxygen, improved Plan Medications have been reviewed and will be continued as ordered. IV steroid taper, Singulair Cardiology on consult appreciate recommendations Patient is scheduled for a CT of the lumbar spine per the primary team Continue with pulmonary hygiene, coughing and deep breathing exercises, and supportive care. Supplemental oxygen to maintain oxygen saturations of 92% or better. Continue nebulizer treatments. GI and DVT prophylaxis. We will continue to monitor labs/results and adjust treatment as necessary. Further recommendations pending. I, the signing physician performed an examination of the patient, discussed and directed their management with the nurse practitioner. I have reviewed the nurse practitioner's note and agree with the documented findings, orders and plan of care.
[2018-06-18] MEDS: BUDESONIDE 0.5 MG/2 ML NEBU INHALATION SCH (09:49)
[2018-06-18] MEDS: LISINOPRIL 10 MG TAB PO SCH (10:02)
[2018-06-18] MEDS: HEPARIN SODIUM,PORCINE 5,000 UNIT/ML 1 ML VIAL SQ SCH (10:02)
--- NOTE | 2018-06-18 11:05 | CT ---
EXAMINATION TYPE: CT lumbar spine wo con DATE OF EXAM: 06/18/2018 COMPARISON: Plain film 12/15/2016 HISTORY: Back pain CT DLP: 1405 mGycm Automated exposure control for dose reduction was used. An unenhanced CT of the lumbar spine was performed. Bone and soft tissue window settings are submitt ed as well as coronal and sagittal reconstructions. FINDINGS: Lumbar vertebral bodies show preserved height and alignment, bone mineralization. No evident spondylo lysis. There is multilevel spondylosis. Disc spaces are relatively maintained. L1-L2: Minimal posterior disc bulge causes only slight anterior mass effect on the thecal sac. No sig nificant foraminal encroachment or central stenosis. L2-L3: Minimal posterior disc bulge causes slight anterior mass effect on the thecal sac. No signific ant central canal stenosis, foraminal encroachment. L3-L4: Minimal disc bulge causes slight anterior mass effect on the thecal sac. No significant forami nal encroachment or central stenosis. L4-L5: Minimal posterior broad-based disc bulge causes only slight anterior mass effect on the thecal sac. There is facet arthropathy with hypertrophy of the ligamentum flavum causing posterior lateral mass effect on the thecal sac. On mild central stenosis, no significant foraminal encroachment. L5-S1: Normal disc space height. No disc herniation protrusion or central stenosis. No facet joint arthropathy. No evidence for foraminal encroachment. IMPRESSION: No paraspinal masses are identified. Lumbar segments are intact. Mild degenerative disc disease, fac et arthropathy as described.
[2018-06-18 11:30] VITALS: BP 116/63; PULSE 96; TEMP 98.4
[2018-06-18 11:40] LABS: Glucose,Whole Blood 272 mg/dL (75-99)
== END 2018-06-18 13:09 | disposition home or self-care (01) ==
LOC: EC 20:54 → 3SCARD 23:01
PROVIDERS: ADMIT Family Medicine; ATTEND Family Medicine
DX: R07.89 Other chest pain (principal); J45.901 Unspecified asthma with (acute) exacerbation; I10 Essential (primary) hypertension; E11.9 Type 2 diabetes mellitus without complications; R79.89 Other specified abnormal findings of blood chemistry; J44.9 Chronic obstructive pulmonary disease, unspecified; I25.10 Atherosclerotic heart disease of native coronary artery without angina pectoris; Z80.9 Family history of malignant neoplasm, unspecified; Z79.899 Other long term (current) drug therapy; Z79.84 Long term (current) use of oral hypoglycemic drugs; E66.9 Obesity, unspecified; Z68.39 Body mass index [BMI] 39.0-39.9, adult; K81.2 Acute cholecystitis with chronic cholecystitis; J96.01 Acute respiratory failure with hypoxia; Z87.891 Personal history of nicotine dependence; Z82.49 Family history of ischemic heart disease and other diseases of the circulatory system
CPT/HCPCS: 96376 ×2; 96372 ×2; 96374; 96375; 96361; 99285; 36415; 94640 ×2; 93005; 85379; 83880; 80061; 80053; 82550 ×2; 82553 ×2; 83690; 83735; 84484 ×2; 85025; 85610; 85730; 81003; 83036; 71045; 76705; 72131; 71260; G0378 ×3; C8929; J1644 ×2; J2920 ×2; J1885; Q9950; Q9967; 93306

== ENCOUNTER → 2018-07-04 | Outpatient (CLI) | payer OTHER ==
--- NOTE | 2018-07-05 07:06 | NM ---
EXAMINATION TYPE: NM hepatobiliary w EF DATE OF EXAM: 07/04/2018 COMPARISON: 06/17/2019 ultrasound HISTORY: Right upper quadrant abdominal pain TECHNIQUE: After the intravenous administration of 5.4 mCi Tc 99m Mebrofenin hepatobiliary scintigrap hy is performed. Immediate images post injection. FINDINGS: There is satisfactory initial accumulation of tracer by the liver. The gallbladder is visualized wit hin 45 minutes. The small bowel activity is noted within 16 minutes. At one hour 8 ounces of oral e nsure plus is given to mimic CCK and gallbladder ejection fraction is calculated at 33 %, abnormal. Therefore there is no scintigraphic evidence of cystic or common bile duct obstruction to suggest acu te cholecystitis or gallbladder dyskinesia. IMPRESSION: 1. Abnormal biliary ejection fraction indicative of biliary dyskinesia. 2. No scintigraphic evidence of acute or chronic cholecystitis.
== END | disposition home or self-care (01) ==
LOC: RADNMMAIN 14:30
PROVIDERS: ATTEND Family Medicine
DX: K82.8 Other specified diseases of gallbladder (principal)
CPT/HCPCS: 78226; A9537

== ENCOUNTER → 2018-07-09 | Outpatient (CLI) | payer OTHER ==
--- NOTE | 2018-07-10 07:12 | XR ---
EXAMINATION TYPE: XR thoracic spine complete DATE OF EXAM: 07/09/2018 COMPARISON: None HISTORY: Thoracic pain TECHNIQUE: Three-view thoracic spine FINDINGS: There are 12 thoracic type vertebral bodies. The T12 ribs are rudimentary. Pedicles are int act. Vertebral body alignment is normal. Disc heights are preserved. Lower thoracic spine spondylosis is present. IMPRESSION: 1. No acute abnormality thoracic spine.
== END | disposition home or self-care (01) ==
LOC: RADXRMAIN 16:12
PROVIDERS: ATTEND Family Medicine
DX: M54.6 Pain in thoracic spine (principal)
CPT/HCPCS: 72072

== ENCOUNTER → 2018-08-15 | Day surgery (SDC) | payer OTHER ==
[2018-08-14 09:56] VITALS: BMI 37.9
[~2018-08-15] MED LIST changes: +BUPIVACAIN-EPI 0.25%-1:200,000 30 ML VIAL SQ ONE; +DEXAMETHASONE SOD PHOSPHATE 10 MG/ML 1 ML VIAL IV ONE; +HEPARIN SODIUM,PORCINE 5,000 UNIT/ML 1 ML VIAL SQ ONE; +HYDROcodone/APAP 7.5-325MG 1 EACH TAB PO ONE; +LACTATED RINGERS 1,000 ML IV ONE; +LIDOCAINE 1% 20 ML VIAL (10MG/ML) FOR IV START INTRADERMA PRN; +LIDOCAINE 1% INJ 10MG/ML (20 ML MDV) ONE; +MIDAZOLAM (PF) 2 MG/2 ML VIAL IV PRN; +MIDAZOLAM 2 MG/2 ML VIAL ONE; +ONDANSETRON 4 MG/2 ML VIAL IVP ONE; +PHENYLEPHRINE-0.9% NACL SYG 1 MG/10 ML SYRINGE ONE; +PROPOFOL 10 MG/ML 20 ML VIAL IV ONE; +ROCURONIUM BROMIDE 10 MG/ML 10 ML VIAL IV ONE; +SCOPOLAMINE 1.5MG/72HR PATCH TRANSDERM ONE; +ceFAZolin IN SWFI 2 GM/20 ML SYRINGE IVP ONE; +fentaNYL (PF) 50 MCG/ML 2 ML AMP ONE
[2018-08-15 06:47] LABS: Glucose,Whole Blood 109 mg/dL (75-99)
--- NOTE | 2018-08-15 08:00 | P.GSHP ---
History of Present Illness H&P Date: 08/15/18 Chief Complaint: Right upper quadrant pain This a 53-year-old male who's had complaints of right upper quadrant pain. His recent HIDA scan shows abnormal ejection fraction consistent with chronic cholecystitis. He presents today for laparoscopic cholecystectomy. 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) Past Anesthesia/Blood Transfusion Reactions: No Reported Reaction, Motion Sickness Past Psychological History: No Psychological Hx Reported Smoking Status: Never smoker Past Alcohol Use History: None Reported Past Drug Use History: None Reported - Past Family History Mother Family Medical History: Cancer Medications and Allergies Home Medications Medication Instructions Recorded Confirmed Type Cholecalciferol (Vitamin D3) 2,000 unit PO DAILY 05/28/18 08/15/18 History [Vitamin D3] glipiZIDE [Glucotrol] 2.5 mg PO BID 05/28/18 08/15/18 History metFORMIN HCL [Glucophage] 500 mg PO DAILY 05/28/18 08/15/18 History Lisinopril [Zestril] 10 mg PO DAILY tab 06/18/18 08/15/18 Rx Montelukast [Singulair] 10 mg PO HS tab 06/18/18 08/15/18 Rx Aspirin 650 mg PO DIRECTED PRN 08/14/18 08/15/18 History Ibuprofen 800 mg PO DAILY PRN 08/14/18 08/15/18 History Omeprazole 20 mg PO DAILY 08/14/18 08/15/18 History rOPINIRole HCL 5 mg PO DAILY 08/14/18 08/15/18 History Allergies Allergy/AdvReac Type Severity Reaction Status Date / Time No Known Allergies Allergy Verified 08/15/18 06:24 Surgical - Exam Vital Signs Temp Pulse Resp BP Pulse Ox 98 F 75 16 118/77 94 L 08/15/18 06:28 08/15/18 06:28 08/15/18 06:28 08/15/18 06:28 08/15/18 06:28 - General well developed, well nourished, no distress - Eyes PERRL - ENT normal pinna - Neck no masses - Respiratory normal expansion - Cardiovascular Rhythm: regular - Abdomen Abdomen: soft, non tender Results - Labs Abnormal Lab Results - Last 24 Hours (Table) 08/15/18 Range/Units 06:34 POC Glucose (mg/dL) 109 H (75-99) mg/dL Assessment and Plan Assessment: Chronic cholecystitis We'll perform laparoscopic cholecystectomy.
--- NOTE | 2018-08-15 08:55 | P.OP ---
Date of Procedure: 08/15/18 Preoperative Diagnosis: Cholecystitis Postoperative Diagnosis: Cholecystitis Procedure(s) Performed: Laparoscopic cholecystectomy Anesthesia: MILES Surgeon: Israel Callejas Estimated Blood Loss (ml): 5 Pathology: other (Gallbladder) Condition: stable Disposition: PACU Description of Procedure: The patient was placed on the operating table. The patient received a general endotracheal tube anesthesia. The patients abdomen was prepped and draped in the usual sterile fashion. Through an infraumbilical stab incision, the fascia of the anterior abdominal wall was grasped with a pair of Kochers and then the Veress needle was placed in the peritoneal cavity. Position of the Veress needle was confirmed with positive drop test. The abdomen was then insufflated. After adequate insufflation, the 10 mm trocar was placed in the peritoneal cavity. Following this the laparoscope was placed in the peritoneal cavity. The patient was placed in the head-up, right side up position and then a 5 mm trocar was placed in the right lateral and right subcostal position under direct visualization. A 8 mm trocar was placed in the epigastric position. The gallbladder was grasped in the fundus and infundibulum. Traction on the gallbladder was placed in the lateral and the cephalad positions. The triangle of Calot was visualized.. The cystic duct was bluntly dissected until the union of the cystic duct and common bile duct was seen. The cystic duct was then divided and sealed with the Harmonic scissors. A PDS Endoloop was then placed throughout the cystic duct stump. The cystic artery divided and sealed with the Harmonic scissors. The gallbladder was then removed from the liver bed using Harmonic scissors. The gallbladder was then extracted through the epigastric port site. Operative field was checked for any bleeding spots and Harmonic scissors was used to coagulate the liver bed. The abdomen was irrigated. The trocars were removed. The skin was closed using interrupted 3-0 Vicryl suture. Dermabond dressing were applied. The patient tolerated the procedure well.
[2018-08-15] MEDS: HYDROmorphone 0.5 MG/0.5 ML SYRINGE IVP PRN ×2 (09:02→09:23)
[2018-08-15 09:04] VITALS: TEMP 97.3
[2018-08-15 09:05] VITALS: RESP 16
[2018-08-15 09:12] LABS: Glucose,Whole Blood 169 mg/dL (75-99)
[2018-08-15 10:18] VITALS: BP 117/75; PULSE 79
== END ==
LOC: OR 06:08
PROVIDERS: ATTEND Surgery
DX: K81.1 Chronic cholecystitis (principal); J45.909 Unspecified asthma, uncomplicated; E11.9 Type 2 diabetes mellitus without complications; I10 Essential (primary) hypertension; K21.9 Gastro-esophageal reflux disease without esophagitis; Z79.84 Long term (current) use of oral hypoglycemic drugs; Z79.899 Other long term (current) drug therapy
CPT/HCPCS: 88304; 47562; J2250; J1644; J1100; J2405; J2001; J3010; J2370; J2704; J1170; J0690

== ENCOUNTER 2019-05-21 18:20 | Observation (INO) | payer OTHER ==
[2019-05-21] MEDS ORDERED: ASPIRIN 81 MG PO STA (18:28)
--- NOTE | 2019-05-21 18:37 | ED ---
General Adult HPI - General Chief complaint: Chest Pain Stated complaint: Chest pain Time Seen by Provider: 05/21/19 18:28 Source: patient, RN notes reviewed Mode of arrival: ambulatory Limitations: no limitations - History of Present Illness Initial comments: 54-year-old male with a past medical history of asthma, diabetes mellitus, hypertension presents to the emergency department for left sided chest pain 3 days. Patient states the pain is sharp in nature. States it radiates down his left arm as well as to the left upper back. Patient states he has had similar pain before when he had a "collapsed lung" as well as last May when he was in the hospital. Patient states that breathing makes the pain worse. Denies anything making the pain better.patient admits to a history of smoking but quit several years ago. Denies history of hyperlipidemia. States his brother had a stroke at the same age. Patient has no other complaints at this time including abdominal pain, nausea or vomiting, headache, or visual changes. - Related Data Home Medications Medication Instructions Recorded Confirmed Cholecalciferol (Vitamin D3) 2,000 unit PO DAILY 05/28/18 08/15/18 [Vitamin D3] glipiZIDE [Glucotrol] 2.5 mg PO BID 05/28/18 08/15/18 metFORMIN HCL [Glucophage] 500 mg PO DAILY 05/28/18 08/15/18 Aspirin 650 mg PO DIRECTED PRN 08/14/18 08/15/18 Ibuprofen 800 mg PO DAILY PRN 08/14/18 08/15/18 Omeprazole 20 mg PO DAILY 08/14/18 08/15/18 rOPINIRole HCL 5 mg PO DAILY 08/14/18 08/15/18 Previous Rx's Medication Instructions Recorded Lisinopril [Zestril] 10 mg PO DAILY tab 06/18/18 Montelukast [Singulair] 10 mg PO HS tab 06/18/18 HYDROcodone/APAP 7.5-325MG [[place] 1 tab PO Q4H PRN 3 Days #18 tab 08/15/18 7.5-325] Allergies Allergy/AdvReac Type Severity Reaction Status Date / Time No Known Allergies Allergy Verified 05/21/19 18:24 Review of Systems ROS Statement: Those systems with pertinent positive or pertinent negative responses have been documented in the HPI. ROS Other: All systems not noted in ROS Statement are negative. Past Medical History Past Medical History: Asthma, Diabetes Mellitus, Hypertension Additional Past Medical History / Comment(s): BACK PAIN, GALL BLADDER PAIN & NAUSEA History of Any Multi-Drug Resistant Organisms: None Reported Past Surgical History: Orthopedic Surgery Additional Past Surgical History / Comment(s): RIGHT KNEE, RIGHT FOOT TOES AMPUTATED-(1996 [employer] INJURY) Past Anesthesia/Blood Transfusion Reactions: No Reported Reaction, Motion Sickness Past Psychological History: No Psychological Hx Reported Smoking Status: Never smoker Past Alcohol Use History: None Reported Past Drug Use History: None Reported - Past Family History Mother Family Medical History: Cancer General Exam Limitations: no limitations General appearance: alert, in no apparent distress Head exam: Present: atraumatic, normocephalic, normal inspection Eye exam: Present: normal appearance, PERRL, EOMI. Absent: scleral icterus, conjunctival injection, periorbital swelling ENT exam: Present: normal exam, mucous membranes moist Neck exam: Present: normal inspection, full ROM. Absent: tenderness, meningismus, lymphadenopathy Respiratory exam: Present: normal lung sounds bilaterally. Absent: respiratory distress, wheezes, rales, rhonchi, stridor Cardiovascular Exam: Present: regular rate, normal rhythm, normal heart sounds. Absent: systolic murmur, diastolic murmur, rubs, gallop, clicks GI/Abdominal exam: Present: soft, normal bowel sounds. Absent: distended, tenderness, guarding, rebound, rigid Neurological exam: Present: alert Course Vital Signs 05/21/19 05/21/19 05/21/19 18:21 18:54 19:03 Temperature 98.3 F Pulse Rate 92 74 Respiratory 20 18 18 Rate Blood Pressure 137/83 123/82 O2 Sat by Pulse 95 98 Oximetry EKG Findings - EKG Comments: EKG Findings:: Normal sinus rhythm, ventricular rate 86, [place] interval 126, QTc 437, no ST elevation or depression Medical Decision Making - Medical Decision Making Patient was seen for chest pain May 2018. Had a chest CT at that time that showed no significant abnormality to account for patient's symptoms. Thoracic aorta was of normal caliber. Echocardiogram was performed which showed an ejection fraction between 45-50%. EKG was obtained which showed a normal sinus rhythm, no ST elevation or depression. One view portable chest x-ray was obtained to rule out pneumothorax as patient had similar symptoms previously with pneumothorax. This was unremarkable. CBC CMP unremarkable. Troponin is negative. BNP is within normal limits. D-dimer 0.34. However given patient's symptoms of chest pain radiating to the left arm and back as well as multiple comorbidities he will be admitted for rule out ACS and cardiology consultation. Patient started on a low-dose heparin. - Lab Data Result diagrams: 05/21/19 19:00 05/21/19 19:00 Lab Results 05/21/19 05/21/19 05/21/19 Range/Units 19:00 19:00 19:00 WBC 10.6 (3.8-10.6) k/uL RBC 5.21 (4.30-5.90) m/uL Hgb 13.1 (13.0-17.5) gm/dL Hct 41.3 (39.0-53.0) % MCV 79.3 L (80.0-100.0) fL MCH 25.2 (25.0-35.0) pg MCHC 31.8 (31.0-37.0) g/dL RDW 16.4 H (11.5-15.5) % Plt Count 307 (150-450) k/uL Neutrophils % 59 % Lymphocytes % 32 % Monocytes % 4 % Eosinophils % 2 % Basophils % 1 % Neutrophils # 6.3 (1.3-7.7) k/uL Lymphocytes # 3.4 (1.0-4.8) k/uL Monocytes # 0.5 (0-1.0) k/uL Eosinophils # 0.2 (0-0.7) k/uL Basophils # 0.1 (0-0.2) k/uL Hypochromasia Marked Anisocytosis Slight Microcytosis Slight PT (9.0-12.0) sec INR (<1.2) APTT (22.0-30.0) sec D-Dimer (<0.60) mg/L FEU Sodium 140 (137-145) mmol/L Potassium 4.1 (3.5-5.1) mmol/L Chloride 109 H (98-107) mmol/L Carbon Dioxide 22 (22-30) mmol/L Anion Gap 9 mmol/L BUN 13 (9-20) mg/dL Creatinine 0.81 (0.66-1.25) mg/dL Est GFR (CKD-EPI)AfAm >90 (>60 ml/min/1.73 sqM) Est GFR (CKD-EPI)NonAf >90 (>60 ml/min/1.73 sqM) Glucose 182 H (74-99) mg/dL Calcium 9.2 (8.4-10.2) mg/dL Magnesium 1.9 (1.6-2.3) mg/dL Total Bilirubin 0.2 (0.2-1.3) mg/dL AST 24 (17-59) U/L ALT 26 (21-72) U/L Alkaline Phosphatase 108 (38-126) U/L Troponin I (0.000-0.034) ng/mL NT-Pro-B Natriuret Pep 23 pg/mL Total Protein 7.2 (6.3-8.2) g/dL Albumin 3.9 (3.5-5.0) g/dL Amylase 102 (30-110) U/L Lipase 147 (23-300) U/L Digoxin <0.4 ng/mL 05/21/19 05/21/19 05/21/19 Range/Units 19:00 19:00 19:30 WBC (3.8-10.6) k/uL RBC (4.30-5.90) m/uL Hgb (13.0-17.5) gm/dL Hct (39.0-53.0) % MCV (80.0-100.0) fL MCH (25.0-35.0) pg MCHC (31.0-37.0) g/dL RDW (11.5-15.5) % Plt Count (150-450) k/uL Neutrophils % % Lymphocytes % % Monocytes % % Eosinophils % % Basophils % % Neutrophils # (1.3-7.7) k/uL Lymphocytes # (1.0-4.8) k/uL Monocytes # (0-1.0) k/uL Eosinophils # (0-0.7) k/uL Basophils # (0-0.2) k/uL Hypochromasia Anisocytosis Microcytosis PT 9.7 (9.0-12.0) sec INR 0.9 (<1.2) APTT 23.2 (22.0-30.0) sec D-Dimer 0.34 (<0.60) mg/L FEU Sodium (137-145) mmol/L Potassium (3.5-5.1) mmol/L Chloride (98-107) mmol/L Carbon Dioxide (22-30) mmol/L Anion Gap mmol/L BUN (9-20) mg/dL Creatinine (0.66-1.25) mg/dL Est GFR (CKD-EPI)AfAm (>60 ml/min/1.73 sqM) Est GFR (CKD-EPI)NonAf (>60 ml/min/1.73 sqM) Glucose (74-99) mg/dL Calcium (8.4-10.2) mg/dL Magnesium (1.6-2.3) mg/dL Total Bilirubin (0.2-1.3) mg/dL AST (17-59) U/L ALT (21-72) U/L Alkaline Phosphatase (38-126) U/L Troponin I <0.012 (0.000-0.034) ng/mL NT-Pro-B Natriuret Pep pg/mL Total Protein (6.3-8.2) g/dL Albumin (3.5-5.0) g/dL Amylase (30-110) U/L Lipase (23-300) U/L Digoxin ng/mL Disposition Clinical Impression: Chest pain Disposition: ADMITTED IP TO THIS HOSP Condition: Fair Is patient prescribed a controlled substance at d/c from ED?: No Referrals: Alexis Larson MD [Primary Care Provider] - 1-2 days Time of Disposition: 20:04
--- NOTE | 2019-05-21 19:04 | XR ---
EXAMINATION TYPE: XR chest 1V portable DATE OF EXAM: 05/21/2019 COMPARISON: 06/16/2018 HISTORY: Chest pain TECHNIQUE: Single frontal view of the chest is obtained. FINDINGS: Heart and mediastinum are normal. Lungs are clear. Diaphragm is normal. Bony thorax appear s normal. There are chest leads. IMPRESSION: Normal chest. No change.
[2019-05-21] MEDS ORDERED: MORPHINE SULFATE 4 MG/ML SYRINGE IVP STA (19:07)
[2019-05-21 19:12] LABS: Anisocytosis Slight; Basophils # (A) 0.1 k/uL (0-0.2); Basophils % (A) 1 %; Eosinophils # (A) 0.2 k/uL (0-0.7); Eosinophils % (A) 2 %; HCT 41.3 % (39.0-53.0); HGB 13.1 gm/dL (13.0-17.5); Hypochromasia Marked; Lymphocytes # (A) 3.4 k/uL (1.0-4.8); Lymphocytes % (A) 32 %; MCH 25.2 pg (25.0-35.0); MCHC 31.8 g/dL (31.0-37.0); MCV 79.3 fL (80.0-100.0); Mean Platelet Volume 6.9; Microcytosis Slight; Monocytes # (A) 0.5 k/uL (0-1.0); Monocytes % (A) 4 %; Neutrophils # (A) 6.3 k/uL (1.3-7.7); Neutrophils % (A) 59 %; Platelet Count 307 k/uL (150-450); RBC 5.21 m/uL (4.30-5.90); RDW 16.4 % (11.5-15.5); WBC 10.6 k/uL (3.8-10.6)
[2019-05-21 19:18] LABS: INR 0.9 (<1.2); Partial Thromboplastin Time 23.2 sec (22.0-30.0); Prothrombin Time 9.7 sec (9.0-12.0)
[2019-05-21 19:21] LABS: ALT 26 U/L (21-72); AST 24 U/L (17-59); African American GFR (CKD) >90 (>60 ml/min/1.73 sqM); Albumin 3.9 g/dL (3.5-5.0); Alkaline Phosphatase 108 U/L (38-126); Amylase 102 U/L (30-110); Anion Gap 9 mmol/L; Blood Urea Nitrogen 13 mg/dL (9-20); Calcium 9.2 mg/dL (8.4-10.2); Carbon Dioxide 22 mmol/L (22-30); Chloride 109 mmol/L (98-107); Digoxin <0.4 ng/mL; Glucose 182 mg/dL (74-99); Magnesium 1.9 mg/dL (1.6-2.3); Non-African American GFR(CKD) >90 (>60 ml/min/1.73 sqM); Potassium 4.1 mmol/L (3.5-5.1); Sodium 140 mmol/L (137-145); Total Bilirubin 0.2 mg/dL (0.2-1.3); Total Protein 7.2 g/dL (6.3-8.2)
[2019-05-21] MEDS ORDERED: HEPARIN SODIUM,PORCINE 5,000 UNIT/ML 1 ML VIAL IV ONE (20:00)
[2019-05-21] MEDS ORDERED: HEPARIN SOD,PORK IN 0.45% NACL 25,000 UNIT in 0.45% NACL 1 250ML.BAG IV SCH (20:00)
[2019-05-21] MEDS ORDERED: HEPARIN SODIUM,PORCINE 5,000 UNIT/ML 1 ML VIAL IV PRN (20:00)
[2019-05-21] MEDS ORDERED: NITROGLYCERIN SL TABS 0.4 MG TAB SUBLINGUAL PRN (20:01)
[2019-05-21 21:01] LABS: Glucose,Whole Blood 149 mg/dL (75-99)
[2019-05-22] MEDS: HYDROcodone/APAP 5-325MG 1 EACH TAB PO PRN ×3 (03:13→17:49)
[2019-05-22 06:56] LABS: Glucose,Whole Blood 143 mg/dL (75-99)
[2019-05-22] MEDS ORDERED: ATORVASTATIN 40 MG TAB PO SCH (09:00)
[2019-05-22] MEDS ORDERED: ASPIRIN 325 MG TAB PO SCH (09:00)
[2019-05-22] MEDS ORDERED: ASPIRIN 81 MG PO SCH (09:00)
--- NOTE | 2019-05-22 09:05 | XR ---
EXAMINATION TYPE: XR cervical spine comp DATE OF EXAM: 05/22/2019 CLINICAL HISTORY: pain COMPARISON: NONE TECHNIQUE: Frontal, lateral, oblique, swimmers, and open mouth view of the cervical spine are obtaine d. FINDINGS: The cervical spine is visualized in its entirety from C1 thru the top of T1 level. It is s atisfactory in alignment without evidence of acute fracture or dislocation. The pre-vertebral soft t issue appears within normal limits. Moderate degenerative disc space narrowing and spondylosis extend ing from C4 through C6 7. The C1-C2 articulation is unremarkable on the open mouth view. Neural aracely inal encroachment on the left at C6-7. IMPRESSION: No acute fracture or dislocation is seen in the cervical spine. Degenerative changes as discussed. ICD 10 NO FRACTURE, INITIAL EVALUATION
[2019-05-22 09:35] LABS: Anisocytosis Slight; Basophils % (A) 0 %; Eosinophils # (A) 0.2 k/uL (0-0.7); Eosinophils % (A) 2 %; HCT 39.8 % (39.0-53.0); HGB 12.3 gm/dL (13.0-17.5); Hypochromasia Moderate; Lymphocytes # (A) 3.5 k/uL (1.0-4.8); Lymphocytes % (A) 43 %; MCH 24.3 pg (25.0-35.0); MCHC 30.8 g/dL (31.0-37.0); Mean Platelet Volume 7.4; Microcytosis Slight; Monocytes # (A) 0.4 k/uL (0-1.0); Monocytes % (A) 5 %; Neutrophils # (A) 3.9 k/uL (1.3-7.7); Neutrophils % (A) 48 %; Platelet Count 269 k/uL (150-450); RBC 5.05 m/uL (4.30-5.90); RDW 16.9 % (11.5-15.5); WBC 8.1 k/uL (3.8-10.6)
[2019-05-22 10:29] LABS: Cholesterol 138 mg/dL (<200); HDL Cholesterol 31 mg/dL (40-60); LDL Cholesterol,Calculated 87 mg/dL (0-99); Triglycerides 99 mg/dL (<150)
--- NOTE | 2019-05-22 11:19 | P.CRDCN ---
History of Present Illness History of present illness: This is a pleasant 54-year-old male past medical history significant for diabetes mellitus. He states in the past he had been on antihypertensive medication however his blood pressure has improved and he no longer takes. He denies prior history of coronary artery disease and does not follow with a rush seater for any reason. We've been assisting him in consultation secondary to chest discomfort. He states for the previous 3-4 days he has been experiencing a numbness down the left arm. He has a discomfort that seems to originate at the base of the left neck radiates into the left shoulder and into the left precordial region, down the left torso. His discomfort is exacerbated most specifically when he turns his head to the right. He denies exertional chest pain or shortness of breath. He denies palpitations, nausea, vomiting or diaphoresis. EKG reveals sinus mechanism with no acute ST or T wave abnormalities noted. Laboratory data reviewed, WBC 8.1, hemoglobin 12.3, p latelets 269, d-dimer 0.34, cardiac enzymes negative 3, LDL 87, sodium 140, potassium 4.1, creatinine 0.81, proBNP 23. Most recent echocardiogram obtained May 2018 revealed mildly impaired LV systolic function with ejection fraction 45-50% with no segmental wall motion abnormalities. At the time of my exam: CONSTITUTIONAL: Denies fever. Denies chills. EYES: Denies blurred vision. Denies vision changes. Denies eye pain. EARS, NOSE, MOUTH & THROAT: Denies headache. Denies sore throat. Denies ear pain. CARDIOVASCULAR: Denies chest pain. Denies shortness of breath. Denies orthopnea. Denies PND. Denies palpitations. RESPIRATORY: Denies cough. GASTROINTESTINAL: Denies abdominal pain. Denies diarrhea. Denies constipation. Denies nausea. Denies vomiting. MUSCULOSKELETAL: Denies myalgias. INTEGUMENTARY: Denies pruitis. Denies rash. NEUROLOGIC: Complains of left arm numbness. Denies tingling. Denies weakness. PSYCHIATRIC: Denies anxiety. Denies depression. ENDOCRINE: Denies fatigue. Denies weight change. Denies polydipsia. Denies polyurina. GENITOURINARY: Denies burning, hematuria or urgency with micturation. HEMATOLOGIC: Denies history of anemia. Denies bleeding. Blood pressure 105/67 heart rate 61 afebrile maintaining oxygen saturation on room air GENERAL: This is a 54-year-old male in no apparent distress at the time of my examination. HEENT: Head is atraumatic, normocephalic. Pupils are equal, round. Sclerae anicteric. Conjunctivae are clear. Mucous membranes of the mouth are moist. Neck is supple. There is no jugular venous distention. No carotid bruit is heard. LUNGS: Clear to auscultation no wheezes, rales or rhonchi. Positive chest wall tenderness is noted on palpation and with movement of his head to the right. No pain with deep breathing. HEART: Regular rate and rhythm without murmurs, rubs or gallops. S1 and S2 heard. ABDOMEN: Soft, nontender. Bowel sounds are heard. No organomegaly noted. EXTREMITIES: No evidence of peripheral edema and no calf tenderness noted. VASCULAR: Radial and dorsalis pedis pulses palpated, no evidence of clubbing. NEUROLOGIC: Patient is awake, alert and oriented x3. ASSESSMENT Chest pain, atypical. An acute event has been ruled out. Symptoms likely related to cervical radiculopathy Diabetes mellitus PLAN An acute event has been ruled out. Repeat echocardiogram to assess LV function. Ongoing medical management and evaluation of possible cervical radiculopathy. Follow up with Dr. Garcia upon discharge for outpatient stress testing given his risk factors. Thank you kindly for this consultation. Nurse Practitioner note has been reviewed, I agree with a documented findings and plan of care. Patient was seen and examined. 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) Past Anesthesia/Blood Transfusion Reactions: No Reported Reaction Past Psychological History: No Psychological Hx Reported Smoking Status: Never smoker Past Alcohol Use History: None Reported Past Drug Use History: None Reported - Past Family History Mother Family Medical History: Cancer Medications and Allergies Home Medications Medication Instructions Recorded Confirmed Type glipiZIDE [Glucotrol] 5 mg PO DAILY 05/21/19 05/21/19 History Allergies Allergy/AdvReac Type Severity Reaction Status Date / Time No Known Allergies Allergy Verified 05/21/19 21:30 Physical Exam Vitals: Vital Signs Temp Pulse Pulse Resp BP BP Pulse Ox 05/22/19 07:49 97.9 F 61 17 105/67 97 05/22/19 04:00 98.2 F 68 18 112/67 97 05/22/19 00:00 98.2 F 68 18 124/73 98 05/21/19 21:18 98.5 F 74 18 128/80 97 05/21/19 20:31 98.3 F 74 18 123/82 98 05/21/19 19:03 74 18 123/82 98 05/21/19 18:54 18 05/21/19 18:21 98.3 F 92 20 137/83 95 Intake and Output 05/21/19 05/22/19 05/22/19 22:59 06:59 14:59 Intake Total 68.167 Balance 68.167 Intake: Intake, IV Titration 68.167 Amount Heparin Sod,Pork in 0.45% 68.167 NaCl 25,000 unit In 0.45 % NaCl 1 250ml.bag @ 9. 585 UNITS/KG/HR 10 mls/hr IV .Q24H [facility] Rx#: [id number] Other: Voiding Method Toilet Toilet # Voids 1 Weight 104.326 kg Results 05/22/19 09:11 05/21/19 19:00 Cardiac Enzymes 05/21/19 05/21/19 05/22/19 Range/Units 19:00 19:00 02:19 AST 24 (17-59) U/L Troponin I <0.012 <0.012 (0.000-0.034) ng/mL Coagulation 05/21/19 05/22/19 Range/Units 19:00 02:19 PT 9.7 (9.0-12.0) sec APTT 23.2 32.0 H (22.0-30.0) sec CBC 05/21/19 Range/Units 19:00 WBC 10.6 (3.8-10.6) k/uL RBC 5.21 (4.30-5.90) m/uL Hgb 13.1 (13.0-17.5) gm/dL Hct 41.3 (39.0-53.0) % Plt Count 307 (150-450) k/uL Comprehensive Metabolic Panel 05/21/19 Range/Units 19:00 Sodium 140 (137-145) mmol/L Potassium 4.1 (3.5-5.1) mmol/L Chloride 109 H (98-107) mmol/L Carbon Dioxide 22 (22-30) mmol/L BUN 13 (9-20) mg/dL Creatinine 0.81 (0.66-1.25) mg/dL Glucose 182 H (74-99) mg/dL Calcium 9.2 (8.4-10.2) mg/dL AST 24 (17-59) U/L ALT 26 (21-72) U/L Alkaline Phosphatase 108 (38-126) U/L Total Protein 7.2 (6.3-8.2) g/dL Albumin 3.9 (3.5-5.0) g/dL Current Medications Generic Name Dose Route Start Last Admin Trade Name Freq PRN Reason Stop Dose Admin Hydrocodone Bitart/Acetaminophen 1 each 05/22/19 03:03 05/22/19 03:13 [place] 5-325 PO 1 each Q8H PRN Administration Pain Aspirin 325 mg 05/22/19 09:00 Aspirin PO DAILY [facility] Heparin Sodium (Porcine) 0 unit 05/21/19 20:00 05/22/19 03:15 Heparin IV 4,000 unit PER PROTOCOL PRN Administration Low PTT Protocol Heparin Sodium/Sodium Chloride 250 mls @ 10 mls/hr 05/21/19 20:00 05/22/19 03:16 25,000 unit/ Sodium Chloride IV 12.585 units/kg/hr .Q24H [facility] 13.129 mls/hr Titration Protocol 9.585 UNITS/KG/HR Nitroglycerin 0.4 mg 05/21/19 20:01 Nitrostat SUBLINGUAL Q5M PRN Chest Pain Intake and Output 05/21/19 05/22/19 05/22/19 22:59 06:59 14:59 Intake Total 68.167 Balance 68.167 Intake: Intake, IV Titration 68.167 Amount Heparin Sod,Pork in 0.45% 68.167 NaCl 25,000 unit In 0.45 % NaCl 1 250ml.bag @ 9. 585 UNITS/KG/HR 10 mls/hr IV .Q24H [facility] Rx#: [id number] Other: Voiding Method Toilet Toilet # Voids 1 Weight 104.326 kg 05/21/19 19:00 05/21/19 19:00
[2019-05-22 11:22] VITALS: BMI 36.0
--- NOTE | 2019-05-22 11:28 | ECHOF ---
Referral Reason:cp and sob MEASUREMENTS -------- HEIGHT: 170.2 cm WEIGHT: 104.3 kg BP: 105/67 RVIDd: 3.3 cm (< 3.3) IVSd: 1.2 cm (0.6 - 1.1) LVIDd: 5.1 cm (3.9 - 5.3) LVPWd: 1.1 cm (0.6 - 1.1) IVSs: 1.7 cm LVIDs: 3.5 cm LVPWs: 1.7 cm LA Diam: 3.9 cm (2.7 - 3.8) LAESV Index (A-L): 23.12 ml/m Ao Diam: 3.2 cm (2.0 - 3.7) AV Cusp: 2.3 cm (1.5 - 2.6) MV EXCURSION: 14.317 mm (> 18.000) MV EF SLOPE: 89 mm/s (70 - 150) EPSS: 0.6 cm MV E Braden: 0.76 m/s MV DecT: 298 ms MV A Braden: 0.64 m/s MV E/A Ratio: 1.19 RAP: 5.00 mmHg RVSP: 23.73 mmHg FINDINGS -------- Sinus rhythm. This was a technically good study. The left ventricular size is normal. There is borderline concentric left ventricular hypertrophy. Overall left ventricular systolic function is normal with, an EF between 60 - 65 %. The diastolic filling pattern is normal for the age of the patient 8.67. The right ventricle is mildly enlarged. Normal LA size by volume 22+/-6 ml/m2. The right atrium is normal in size. Interatrial and interventricular septum intact. The aortic valve is trileaflet and appears structurally normal. There is trace to mild mitral regurgitation. Mild tricuspid regurgitation present. Right ventricular systolic pressure is normal at < 35 mmHg. There is no pulmonic regurgitation present. The aortic root size is normal. Normal inferior vena cava with normal inspiratory collapse consistent with estimated right atrial pre ssure of 5 mmHg. There is no pericardial effusion. CONCLUSIONS -------- 1. Sinus rhythm. 2. This was a technically good study. 3. The left ventricular size is normal. 4. There is borderline concentric left ventricular hypertrophy. 5. Overall left ventricular systolic function is normal with, an EF between 60 - 65 %. 6. The diastolic filling pattern is normal for the age of the patient 8.67 7. The right ventricle is mildly enlarged. 8. Normal LA size by volume 22+/-6 ml/m2. 9. The right atrium is normal in size. 10. Interatrial and interventricular septum intact. 11. The aortic valve is trileaflet and appears structurally normal. 12. There is trace to mild mitral regurgitation. 13. Mild tricuspid regurgitation present. 14. Right ventricular systolic pressure is normal at < 35 mmHg. 15. There is no pulmonic regurgitation present. 16. The aortic root size is normal. 17. Normal inferior vena cava with normal inspiratory collapse consistent with estimated right atrial pressure of 5 mmHg. 18. There is no pericardial effusion. ELECTROTYPER HELPER: Analisa Yost RDCS
[2019-05-22 11:37] VITALS: RESP 18
[2019-05-22 11:53] LABS: Glucose,Whole Blood 112 mg/dL (75-99)
[2019-05-22] MEDS ORDERED: glipiZIDE 5 MG TAB PO SCH (16:15)
[2019-05-22 16:21] LABS: Glucose,Whole Blood 104 mg/dL (75-99)
[2019-05-22 16:25] VITALS: BP 116/72; PULSE 69; TEMP 98.2
--- NOTE | 2019-05-22 18:26 | P.HPIM ---
History of Present Illness H&P Date: 05/22/19 Chief Complaint: Left-sided chest pain 54-year-old male with a past medical history of asthma, diabetes mellitus, hypertension presents to the emergency department for left sided chest pain 3 days. Patient states the pain is sharp in nature. States it radiates down his left arm as well as to the left upper back. Patient states he has had similar pain before when he had a "collapsed lung" as well as last May when he was in the hospital. Patient states that breathing makes the pain worse. Denies anything making the pain better.patient admits to a history of smoking but quit several years ago. Denies history of hyperlipidemia. States his brother had a stroke at the same age. Patient has no other complaints at this time including abdominal pain, nausea or vomiting, headache, or visual changes. 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) Past Anesthesia/Blood Transfusion Reactions: No Reported Reaction Past Psychological History: No Psychological Hx Reported Smoking Status: Never smoker Past Alcohol Use History: None Reported Past Drug Use History: None Reported - Past Family History Mother Family Medical History: Cancer Medications and Allergies Home Medications Medication Instructions Recorded Confirmed Type glipiZIDE [Glucotrol] 5 mg PO DAILY 05/21/19 05/21/19 History Allergies Allergy/AdvReac Type Severity Reaction Status Date / Time No Known Allergies Allergy Verified 05/21/19 21:30 Physical Exam Vitals: Vital Signs Temp Pulse Pulse Resp BP BP Pulse Ox 05/22/19 16:00 98.2 F 69 18 116/72 97 05/22/19 11:36 98.5 F 74 18 112/69 96 05/22/19 07:49 97.9 F 61 17 105/67 97 05/22/19 04:00 98.2 F 68 18 112/67 97 05/22/19 00:00 98.2 F 68 18 124/73 98 05/21/19 21:18 98.5 F 74 18 128/80 97 05/21/19 20:31 98.3 F 74 18 123/82 98 10/23/19 19:03 74 18 123/82 98 05/21/19 18:54 18 Intake and Output 05/22/19 05/22/19 05/22/19 06:59 14:59 22:59 Intake Total 68.167 Balance 68.167 Intake: Intake, IV Titration 68.167 Amount Heparin Sod,Pork in 0.45% 68.167 NaCl 25,000 unit In 0.45 % NaCl 1 250ml.bag @ 9. 585 UNITS/KG/HR 10 mls/hr IV .[facility] Rx#: [id number] Other: Voiding Method Toilet # Voids 1 1 Weight 104.326 kg - Constitutional General appearance: average body habitus, cooperative, disheveled - EENT Eyes: EOMI, PERRLA, normal appearance ENT: hearing grossly normal Ears: bilateral: normal - Neck Carotids: bilateral: upstroke normal Thyroid: bilateral: normal size - Respiratory Respiratory: bilateral: CTA - Cardiovascular Rhythm: regular Heart sounds: normal: S1, S2 - Gastrointestinal General gastrointestinal: distended, normal bowel sounds, soft - Integumentary Integumentary: normal, normal turgor - Neurologic Neurologic: CNII-XII intact - Musculoskeletal Musculoskeletal: gait normal, generalized weakness, strength equal bilaterally - Psychiatric Psychiatric: A&O x's 3, appropriate affect, intact judgment & insight Results CBC & Chem 7: 05/22/19 09:11 05/21/19 19:00 Labs: Abnormal Lab Results - Last 24 Hours (Table) 05/21/19 05/21/19 05/21/19 Range/Units 19:00 19:00 20:58 Hgb (13.0-17.5) gm/dL MCV 79.3 L (80.0-100.0) fL MCH (25.0-35.0) pg MCHC (31.0-37.0) g/dL RDW 16.4 H (11.5-15.5) % APTT (22.0-30.0) sec Chloride 109 H (98-107) mmol/L Glucose 182 H (74-99) mg/dL POC Glucose (mg/dL) 149 H (75-99) mg/dL HDL Cholesterol (40-60) mg/dL 05/22/19 05/22/19 05/22/19 Range/Units 02:19 06:54 09:11 Hgb 12.3 L (13.0-17.5) gm/dL MCV 79.0 L (80.0-100.0) fL MCH 24.3 L (25.0-35.0) pg MCHC 30.8 L (31.0-37.0) g/dL RDW 16.9 H (11.5-15.5) % APTT 32.0 H (22.0-30.0) sec Chloride (98-107) mmol/L Glucose (74-99) mg/dL POC Glucose (mg/dL) 143 H (75-99) mg/dL HDL Cholesterol (40-60) mg/dL 05/22/19 05/22/19 05/22/19 Range/Units 09:11 11:52 16:20 Hgb (13.0-17.5) gm/dL MCV (80.0-100.0) fL MCH (25.0-35.0) pg MCHC (31.0-37.0) g/dL RDW (11.5-15.5) % APTT (22.0-30.0) sec Chloride (98-107) mmol/L Glucose (74-99) mg/dL POC Glucose (mg/dL) 112 H 104 H (75-99) mg/dL HDL Cholesterol 31 L (40-60) mg/dL Thrombosis Risk Factor Assmnt - Choose All That Apply Any of the Below Risk Factors Present?: Yes Each Factor Represents 1 point: Age 41-60 years, Obesity (BMI >25) Other Risk Factors: No Other congenital or acquired thrombophilia - If yes, enter type in comment: No Thrombosis Risk Factor Assessment Total Risk Factor Score: 2 Thrombosis Risk Factor Assessment Level: Low Risk Assessment and Plan Assessment: Atypical left-sided chest pain Diabetes mellitus Hypertension hypertensive cardiovascular disease Chronic pain syndrome History of neuropathy and nerve root compression and cervical spine Plan: Continue pain management Consult cardiology Continue home medications Other recommendations pending plan of care as per clinical response of patient Time with Patient: Greater than 30
--- NOTE | 2019-05-22 18:27 | P.DS ---
Providers Date of admission: 05/21/19 20:00 Expected date of discharge: 05/22/19 Attending physician: Alexis Larson Consults: 05/21/19 20:01 Consult Physician Routine Consulting Provider: [facility] Consult Reason/Comments: chest pain Do you want consulting provider notified?: Yes Primary care physician: [facility] Course: Patient has received Bourg with improved pain management control also seen by cardiology and they recommended to discharge follow-up in outpatient, patient at the time of discharge free of pain is prescription of Bourg was given and follow with primary care provider next week Patient Condition at Discharge: Fair Plan - Discharge Summary Discharge Rx Participant: No New Discharge Prescriptions: No Action glipiZIDE [Glucotrol] 5 mg PO DAILY Discharge Medication List glipiZIDE [Glucotrol] 5 mg PO DAILY 05/21/19 [History] Follow up Appointment(s)/Referral(s): Alexis Larson MD [Primary Care Provider] - 1-2 days Cornelius Garcia MD [STAFF PHYSICIAN] - 2 Weeks (Follow up in the office for outpatient stress test with Dr. Garcia) Patient Instructions/Handouts: Chest Pain (GEN)
== END 2019-05-22 18:36 ==
LOC: EC 18:20 → 1SOBS 20:00
PROVIDERS: ADMIT Family Medicine; ATTEND Family Medicine
DX: R07.89 Other chest pain (principal); M48.02 Spinal stenosis, cervical region; M50.121 Cervical disc disorder at C4-C5 level with radiculopathy; M47.22 Other spondylosis with radiculopathy, cervical region; E11.42 Type 2 diabetes mellitus with diabetic polyneuropathy; I11.9 Hypertensive heart disease without heart failure; G89.4 Chronic pain syndrome; J45.909 Unspecified asthma, uncomplicated; E66.9 Obesity, unspecified; Z68.36 Body mass index [BMI] 36.0-36.9, adult; M54.9 Dorsalgia, unspecified; Z79.84 Long term (current) use of oral hypoglycemic drugs; Z79.1 Long term (current) use of non-steroidal anti-inflammatories (NSAID); Z79.82 Long term (current) use of aspirin; Z79.899 Other long term (current) drug therapy; Z90.49 Acquired absence of other specified parts of digestive tract; Z89.421 Acquired absence of other right toe(s); Z87.09 Personal history of other diseases of the respiratory system; Z87.891 Personal history of nicotine dependence; Z82.3 Family history of stroke; Z80.9 Family history of malignant neoplasm, unspecified
CPT/HCPCS: 93005 ×2; 96366 ×2; 96376; 96365; 96375; 99285; 36415; 93306; 85379; 83880; 80061; 80053; 82150; 80162; 83690; 83735; 84484 ×2; 85025 ×2; 85610; 85730 ×2; 72050; 71045; G0378 ×2; J2270; J1644 ×3

== ENCOUNTER 2020-02-04 20:35 | Emergency (ER) | payer OTHER ==
[2020-02-04] MEDS ORDERED: KETOROLAC 30 MG/ML 1 ML VIAL IM STA (21:13)
--- NOTE | 2020-02-04 21:16 | ED ---
General Adult HPI - General Chief complaint: Extremity Problem,Nontraumatic Stated complaint: arm pain Time Seen by Provider: 02/04/20 20:57 Source: patient Mode of arrival: ambulatory Limitations: no limitations - History of Present Illness Initial comments: Patient is a 55-year-old male presenting to the emergency room with a chief complaint of neck pain. Patient reports a chronic history of degenerative disc disease in the cervical spine with intermittent paresthesias in the left upper time. States this is benign with a past several years. States typically gets steroid shots from his primary care physician. States his next scheduled appointment is on Sunday. States urine took [place] at home but it is not helping his symptoms. Patient states he is coming to the ED to obtain Toradol which typically helps his symptoms. Patient denies any trauma to the region. Denies complete one-sided weakness or paresthesias in both upper and lower extremities. Denies any headaches or fevers. States he's had multiple cervical MRIs and already sees an manpower development specialist. - Related Data Home Medications Medication Instructions Recorded Confirmed glipiZIDE [Glucotrol] 5 mg PO DAILY 05/21/19 05/21/19 Previous Rx's Medication Instructions Recorded Ketorolac [Toradol] 10 mg PO DAILY #7 tab 02/04/20 Omeprazole [PriLOSEC] 20 mg PO AC-BRKFST #7 cap 02/04/20 Allergies Allergy/AdvReac Type Severity Reaction Status Date / Time No Known Allergies Allergy Verified 02/04/20 20:46 Review of Systems ROS Statement: Those systems with pertinent positive or pertinent negative responses have been documented in the HPI. ROS Other: All systems not noted in ROS Statement are negative. 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) Past Anesthesia/Blood Transfusion Reactions: No Reported Reaction Past Psychological History: No Psychological Hx Reported Smoking Status: Never smoker Past Alcohol Use History: None Reported Past Drug Use History: None Reported - Past Family History Mother Family Medical History: Cancer General Exam Limitations: no limitations General appearance: alert, in no apparent distress Head exam: Present: atraumatic, normocephalic, normal inspection Eye exam: Present: normal appearance, PERRL, EOMI Pupils: Present: normal accommodation ENT exam: Present: normal exam, normal oropharynx, mucous membranes moist, TM's normal bilaterally, normal external ear exam Neck exam: Present: normal inspection, tenderness (Left-sided paraspinal tenderness along the trapezius.), full ROM. Absent: meningismus Respiratory exam: Present: normal lung sounds bilaterally. Absent: respiratory distress, wheezes Cardiovascular Exam: Present: regular rate, normal rhythm, normal heart sounds Extremities exam: Present: normal inspection, full ROM, normal capillary refill, other (+2 ulnar and radial pulses laterally. Sensation intact in bilateral u pper and lower extremity is.). Absent: tenderness Back exam: Present: normal inspection, full ROM. Absent: tenderness Neurological exam: Present: alert, oriented X3, CN II-XII intact, normal gait Psychiatric exam: Present: normal affect, normal mood Skin exam: Present: warm, dry, intact, normal color Course Vital Signs 02/04/20 20:43 Temperature 97.9 F Pulse Rate 76 Respiratory 16 Rate Blood Pressure 127/77 O2 Sat by Pulse 99 Oximetry Medical Decision Making - Medical Decision Making Patient is a 55-year-old male with history of severe degenerative disc disease in the cervical spine presenting to the emergency department with a chief complaint of neck pain. On exam patient is neurovascularly intact in the left upper extremity. Patient given Toradol in the ED. Will be discharged with the tablets of Toradol and omeprazole. On reevaluation patient reports improvement in symptoms. Patient appears to have cervical radiculopathy. Patient had already had multiple MRIs and CTs an manpower development specialist for his condition. Patient is set to follow up with his PCP on Sunday. Return parameters were thoroughly discussed the patient was an ascending agreeable. Case discussed physician. Disposition Clinical Impression: Cervical radiculopathy Disposition: HOME SELF-CARE Condition: Stable Instructions (If sedation given, give patient instructions): Cervical Radiculopathy (ED), Neck Pain (ED), Chronic Neck Pain (DC) Additional Instructions: Take prescribed medication as directed. Follow-up with your primary care. Prescriptions: Omeprazole [PriLOSEC] 20 mg PO AC-BRKFST #7 cap Ketorolac [Toradol] 10 mg PO DAILY #7 tab Is patient prescribed a controlled substance at d/c from ED?: No Referrals: Alexis Larson MD [Primary Care Provider] - 1-2 days Time of Disposition: 21:16
[2020-02-06 09:42] VITALS: BP 127/77; PULSE 76; RESP 16; TEMP 97.9
== END 2020-02-04 21:33 | disposition home or self-care (01) ==
LOC: EC 20:35
DX: M54.12 Radiculopathy, cervical region (principal); E11.9 Type 2 diabetes mellitus without complications; Z79.84 Long term (current) use of oral hypoglycemic drugs; Z87.39 Personal history of other diseases of the musculoskeletal system and connective tissue
CPT/HCPCS: 99283

== ENCOUNTER → 2020-06-28 | Outpatient (CLI) | payer OTHER ==
[2020-06-28 14:59] LABS: Anisocytosis Slight; Basophils % (A) 0 %; Eosinophils # (A) 0.2 k/uL (0-0.7); Eosinophils % (A) 2 %; HCT 36.6 % (39.0-53.0); HGB 10.4 gm/dL (13.0-17.5); Hypochromasia Marked; Lymphocytes % (A) 45 %; MCH 19.6 pg (25.0-35.0); MCHC 28.5 g/dL (31.0-37.0); Mean Platelet Volume 8.2; Microcytosis Marked; Monocytes # (A) 0.4 k/uL (0-1.0); Monocytes % (A) 5 %; Neutrophils # (A) 4.1 k/uL (1.3-7.7); Neutrophils % (A) 46 %; Platelet Count 251 k/uL (150-450); Poikilocytosis Slight; RDW 16.7 % (11.5-15.5); WBC 8.8 k/uL (3.8-10.6)
[2020-06-29 00:23] LABS: Anion Gap 10.1 mmol/L (4.00-12.00); BUN/Creat Ratio 12.22 Ratio (12.00-20.00); Calcium 9.2 mg/dL (8.7-10.3); Carbon Dioxide 23.9 mmol/L (21.6-31.8); Non-African American GFR(CKD) 95.8 (60.0-200.0); Potassium 4.1 mmol/L (3.5-5.5)
== END | disposition home or self-care (01) ==
LOC: LABWHC1 14:15
PROVIDERS: ATTEND Urology
DX: N47.1 Phimosis (principal)
CPT/HCPCS: 36415; 80048; 85025

== ENCOUNTER → 2021-03-25 | Outpatient (CLI) | payer OTHER ==
[2021-03-25 09:51] LABS: African American GFR (CKD) >90 (>60 ml/min/1.73 sqM); Blood Urea Nitrogen 18 mg/dL (9-20); Non-African American GFR(CKD) >90 (>60 ml/min/1.73 sqM)
--- NOTE | 2021-03-25 12:16 | CT ---
EXAMINATION TYPE: CT shoulder LT w con DATE OF EXAM: 03/25/2021 COMPARISON: No radiographic correlation available HISTORY: 56-year-old male left shoulder pain, M7 5.80 TECHNIQUE: Contiguous axial scanning of the left shoulder performed with IV Contrast, patient injecte d with 100 mL of Isovue 300. Coronal/sagittal reconstructions performed. CT DLP: 610.70 mGycm Automated exposure control for dose reduction was used. FINDINGS: There is mild degenerative joint space narrowing with marginal spurring and capsular hypertrophy at t he acromioclavicular joint. No significant encroachment onto the subacromial space. No significant effusion within the subacromial/subdeltoid bursa. Overall rotator cuff tendon and muscle bulk appears maintained. There is mild irregularity at both th e lesser and greater tuberosities suggesting tendinosis. The glenohumeral joint appears intact. No significant joint effusion. No acute fracture, subluxation, dislocation. No abnormal enhancement seen. The visualized left hemithorax is clear. IMPRESSION: 1. MILD AC JOINT OA. 2. MILD IRREGULARITY AT BOTH THE LESSER AND GREATER TUBEROSITIES SUGGESTING CHRONIC ROTATOR CUFF TEND INOSIS. IF MORE DETAILED ASSESSMENT OF THE ROTATOR CUFF IS DESIRED, MRI CAN BE PERFORMED. 3. THE GLENOHUMERAL JOINT OTHERWISE APPEARS INTACT. NO ACUTE OR HEALING FRACTURE SEEN.
== END | disposition home or self-care (01) ==
LOC: RADCTMAIN 09:11
PROVIDERS: ATTEND Family Medicine
DX: M19.012 Primary osteoarthritis, left shoulder (principal); M89.8X1 Other specified disorders of bone, shoulder
CPT/HCPCS: 82565; 84520; 36415; 73201; Q9967

== ENCOUNTER 2021-09-22 06:53 | Day surgery (SDC) | payer OTHER ==
[2021-09-21 08:49] VITALS: BMI 36.0
[~2021-09-22 06:53] MED LIST changes: -BUPIVACAIN-EPI 0.25%-1:200,000 30 ML VIAL SQ ONE; -DEXAMETHASONE SOD PHOSPHATE 10 MG/ML 1 ML VIAL IV ONE; -HEPARIN SODIUM,PORCINE 5,000 UNIT/ML 1 ML VIAL SQ ONE; -HYDROcodone/APAP 7.5-325MG 1 EACH TAB PO ONE; -LACTATED RINGERS 1,000 ML IV ONE; -LIDOCAINE 1% 20 ML VIAL (10MG/ML) FOR IV START INTRADERMA PRN; -LIDOCAINE 1% INJ 10MG/ML (20 ML MDV) ONE; -MIDAZOLAM (PF) 2 MG/2 ML VIAL IV PRN; -MIDAZOLAM 2 MG/2 ML VIAL ONE; -ONDANSETRON 4 MG/2 ML VIAL IVP ONE; -PHENYLEPHRINE-0.9% NACL SYG 1 MG/10 ML SYRINGE ONE; -PROPOFOL 10 MG/ML 20 ML VIAL IV ONE; -ROCURONIUM BROMIDE 10 MG/ML 10 ML VIAL IV ONE; -SCOPOLAMINE 1.5MG/72HR PATCH TRANSDERM ONE; -ceFAZolin IN SWFI 2 GM/20 ML SYRINGE IVP ONE; -fentaNYL (PF) 50 MCG/ML 2 ML AMP ONE
[2021-09-22 07:25] VITALS: TEMP 97.6
[2021-09-22] MEDS ORDERED: LIDOCAINE 1% (10MG/ML) FOR IV START INTRADERMA ONE (07:30)
[2021-09-22 07:34] LABS: Glucose,Whole Blood 127 mg/dL (75-99)
[2021-09-22] MEDS ORDERED: LIDOCAINE 1% INJ 10MG/ML (20 ML MDV) ONE (07:56)
[2021-09-22] MEDS ORDERED: PROPOFOL 10 MG/ML 20 ML VIAL IV ONE (07:56)
--- NOTE | 2021-09-22 08:22 | P.GSHP ---
History of Present Illness H&P Date: 09/22/21 Chief Complaint: Anemia, GI bleed This is a 56-year-old male who presents today for EGD and colonoscopy. Patient's issues with anemia GI bleed. Past Medical History Past Medical History: Asthma, Diabetes Mellitus, Hypertension Additional Past Medical History / Comment(s): BACK PAIN, HTN UNDER CONTROL AT THIS TIME. 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), COLONOSCOPY Past Anesthesia/Blood Transfusion Reactions: No Reported Reaction Smoking Status: Never smoker - Past Family History Mother Family Medical History: Cancer Medications and Allergies Home Medications Medication Instructions Recorded Confirmed Type Ertugliflozin Pidolate [Steglatro] 15 mg PO DAILY 09/21/21 09/22/21 History Repaglinide [Prandin] 1 mg PO DAILY 09/21/21 09/22/21 History Rybelsus-Dose Unknown 1 tab PO DAILY 09/21/21 09/22/21 History sitaGLIPtin [Januvia] 100 mg PO DAILY 09/21/21 09/22/21 History Allergies Allergy/AdvReac Type Severity Reaction Status Date / Time No Known Allergies Allergy Verified 09/22/21 07:19 Surgical - Exam Vital Signs Temp Pulse Resp BP Pulse Ox 97.6 F 70 18 123/71 97 09/22/21 07:24 09/22/21 07:24 09/22/21 07:24 09/22/21 07:24 09/22/21 07:24 - General well developed, well nourished, no distress - Eyes PERRL - ENT normal pinna - Neck no masses - Respiratory normal expansion - Cardiovascular Rhythm: regular - Abdomen Abdomen: soft, non tender Results - Labs Abnormal Lab Results - Last 24 Hours (Table) 09/22/21 Range/Units 07:30 POC Glucose (mg/dL) 127 H (75-99) mg/dL Assessment and Plan Assessment: Anemia, GI bleed. We'll perform EGD and colonoscopy
--- NOTE | 2021-09-22 08:24 | P.OP ---
Date of Procedure: 09/22/21 Preoperative Diagnosis: Anemia, GI bleed Postoperative Diagnosis: Mild antral gastritis Large fundal polyp with evidence of bleeding Normal colonoscopy Procedure(s) Performed: Colonoscopy EGD Anesthesia: MAC Surgeon: Israel Callejas Pathology: other (Fundal polyp, antrum) Condition: stable Disposition: PACU Description of Procedure: The patient's placed on the endoscopy table in the lateral position. He should he received IV sedation. The gastroscope placed oropharynx passed in the esophagus and stomach. Scope was placed through the pylorus. The first and second portion of the duodenum appeared normal. The scope summer back the antrum this was mildly inflamed. A biopsies performed. Scope was then retroflexed and remainder of the stomach appeared normal except for a large fundal polyp. The polyp at evidence of some bleeding. The polyp was to be removed with a forcep. Using a large snare the polyp was removed with snare and left cautery. The specimen was retrieved sent to pathology. Next digital rectal exam was performed which revealed no abnormalities. The flexible colonoscope was then placed patient anus passed throughout the entire colon. The ileocecal valve was visualized. The cecum, ascending and transverse colon appeared normal. The descending and sigmoid colon appeared normal. Scope back the rectum and this appeared normal. The scope was withdrawn for patient. There is no evidence of bleeding from the colon. His presumed patient's anemia may be sourced to his large fundal polyp.
[2021-09-22 08:25] VITALS: RESP 16
[2021-09-22 09:07] VITALS: BP 121/70; PULSE 68
== END 2021-09-22 09:46 | disposition home or self-care (01) ==
LOC: ORWHC2ENDO 06:53
PROVIDERS: ATTEND Surgery
DX: D64.9 Anemia, unspecified (principal); K29.50 Unspecified chronic gastritis without bleeding; K31.7 Polyp of stomach and duodenum; J45.909 Unspecified asthma, uncomplicated; E11.9 Type 2 diabetes mellitus without complications; I10 Essential (primary) hypertension; M54.9 Dorsalgia, unspecified; Z90.49 Acquired absence of other specified parts of digestive tract; Z98.890 Other specified postprocedural states; Z79.899 Other long term (current) drug therapy; Z79.84 Long term (current) use of oral hypoglycemic drugs; Z89.421 Acquired absence of other right toe(s); Z80.9 Family history of malignant neoplasm, unspecified
CPT/HCPCS: 88305; 45378; 43239; 43251; J2001; J2704

== ENCOUNTER 2022-06-02 22:26 | Emergency (ER) | payer OTHER ==
[2022-06-02 22:32] VITALS: RESP 20; TEMP 98.6
[2022-06-02 22:36] LABS: Glucose,Whole Blood 132 mg/dL (70-110)
--- NOTE | 2022-06-02 22:39 | ED ---
Psych HPI - General Chief Complaint: Psychiatric Symptoms Stated Complaint: Petition Time Seen by Provider: 06/02/22 22:34 Source: police, RN notes reviewed, old records reviewed Mode of arrival: ambulatory - History of Present Illness Initial Comments: This is a 57-year-old male to the emergency department for evaluation patient presents under petition for evaluation of psychiatric illness and disease. Patient himself is having difficulty with hallucinations, denying current drug abuse MD Complaint: altered mental status -: unknown Associated Psychiatric Symptoms: racing thoughts, auditory hallucinations, visual hallucinations, delusions Quality: constant, intermittent, getting worse Improves With: none, medication Context: significant life stressor Associated Symptoms: denies other symptoms Treatments Prior to Arrival: placed on mental health hold If Self Harm: admits thoughts of self harm - Related Data Home Medications Medication Instructions Recorded Confirmed Ertugliflozin Pidolate [Steglatro] 15 mg PO DAILY 09/21/21 09/22/21 Repaglinide [Prandin] 1 mg PO DAILY 09/21/21 09/22/21 Rybelsus-Dose Unknown 1 tab PO DAILY 09/21/21 09/22/21 sitaGLIPtin [Januvia] 100 mg PO DAILY 09/21/21 09/22/21 Allergies Allergy/AdvReac Type Severity Reaction Status Date / Time No Known Allergies Allergy Verified 06/02/22 22:32 Review of Systems ROS Statement: Those systems with pertinent positive or pertinent negative responses have been documented in the HPI. ROS Other: All systems not noted in ROS Statement are negative. Past Medical History Past Medical History: Asthma, Diabetes Mellitus, Hypertension Additional Past Medical History / Comment(s): BACK PAIN, HTN UNDER CONTROL AT THIS TIME. 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 Absent: scleral icterus, conjunctival injection, periorbital swelling ENT exam: Present: normal exam, mucous membranes moist Neck exam: Present: normal inspection. Absent: tenderness, meningismus, lymphadenopathy Respiratory exam: Present: normal lung sounds bilaterally. Absent: respiratory distress, wheezes, rales, rhonchi, stridor Cardiovascular Exam: Present: regular rate, normal rhythm, normal heart sounds. Absent: systolic murmur, diastolic murmur, rubs, gallop, clicks GI/Abdominal exam: Present: soft, normal bowel sounds. Absent: distended, tenderness, guarding, rebound, rigid Extremities exam: Present: normal inspection, full ROM, normal capillary refill. Absent: tenderness, pedal edema, joint swelling, calf tenderness Back exam: Present: normal inspection Neurological exam: Present: alert, oriented X3, CN II-XII intact Psychiatric exam: Present: normal affect, normal mood Skin exam: Present: warm, dry, intact, normal color. Absent: rash Course Vital Signs 06/02/22 22:29 Temperature 98.6 F Pulse Rate 106 H Respiratory 20 Rate Blood Pressure 126/81 O2 Sat by Pulse 98 Oximetry - Reevaluation(s) Reevaluation #1: 06/03/22 02:03 Medical record is reviewed Reevaluation #2: 06/03/22 02:03 Medical clear for psychiatric evaluation Medical Decision Making - Medical Decision Making 57 male seen and evaluated by psychiatry, patient deemed safe for discharge home - Lab Data Lab Results 06/02/22 Range/Units 22:33 POC Glucose (mg/dL) 132 H (70-110) mg/dL POC Glu Wildlife Biologist ID Helena Roldan Disposition Clinical Impression: Psychosis Disposition: HOME SELF-CARE Condition: Fair Instructions (If sedation given, give patient instructions): Brief Psychotic Disorder (ED) Is patient prescribed a controlled substance at d/c from ED?: No Referrals: Maxwell Harper MD [Primary Care Provider] - 1-2 days Time of Disposition: 02:00
[2022-06-03 02:10] VITALS: BP 142/92; PULSE 101
== END 2022-06-03 02:13 | disposition home or self-care (01) ==
LOC: EC 22:26
DX: F29 Unspecified psychosis not due to a substance or known physiological condition (principal); J45.909 Unspecified asthma, uncomplicated; E11.9 Type 2 diabetes mellitus without complications; I10 Essential (primary) hypertension; Z79.84 Long term (current) use of oral hypoglycemic drugs; Z79.899 Other long term (current) drug therapy
CPT/HCPCS: 36415; 82075; 99284

== ENCOUNTER → 2024-01-01 | Outpatient (CLI) | payer OTHER ==
--- NOTE | 2024-01-01 19:30 | CT ---
EXAMINATION TYPE: CT brain wo con DATE OF EXAM: 01/01/2024 COMPARISON: None HISTORY: 58-year-old male [id number] SKULL FX WHEN YOUNGER/ HEADACHE IN THAT AREA TECHNIQUE: Examination was done in axial plane without intravenous contrast. Coronal and sagittal r econstructions performed. CT DLP: 1029.9 mGycm Automated exposure control for dose reduction was used. FINDINGS: There is no evidence of acute intracranial hemorrhage, acute ischemic changes, mass, mass-effect, or extra-axial fluid collection. There is no effacement of cerebral sulci or basal subarachnoid cister ns. There is no hydrocephalus. There is no midline shift. Grace-white matter distinction is preserv ed. Mild mucosal thickening floor of the right maxillary sinus. Orbits and globes are intact. Mastoid air cells are well pneumatized. There is focal scalp tissue loss along the superior right parietal convexity. No underlying calvarial fracture or other bony abnormality is seen here. IMPRESSION: Chronic loss of focal scalp soft tissue along the superior right parietal convexity. Likely correspon ding to site of prior trauma. No underlying calvarial abnormality or acute intracranial abnormality s een.
== END | disposition home or self-care (01) ==
LOC: RADCTMAIN 18:23
PROVIDERS: ATTEND Family Medicine
DX: S02.91XA Unspecified fracture of skull, initial encounter for closed fracture (principal); X58.XXXA Exposure to other specified factors, initial encounter
CPT/HCPCS: 70450